=== PATIENT | male | born 1955 | race Caucasian/White ===

== ENCOUNTER → 2022-02-22 13:58 | Outpatient (BNVA) | payer MEDICARE, SELFPAY | PROVIDERS: PCP Family Medicine; Visit Provider Physician Assistant | DX: M51.37 Other intervertebral disc degeneration, lumbosacral region (principal); M47.816 Spondylosis without myelopathy or radiculopathy, lumbar region; M85.88 Other specified disorders of bone density and structure, other site; M46.1 Sacroiliitis, not elsewhere classified; M48.56XD Collapsed vertebra, not elsewhere classified, lumbar region, subsequent encounter for fracture with routine healing | CPT/HCPCS: 72110; 99203 ==

== ENCOUNTER 2022-04-27 08:00 | Outpatient (CLI) | payer MEDICARE, OTHER, SELFPAY ==
--- NOTE | 2022-04-27 08:45 | MR_ITS ---
WS: [id number] MRI LUMBAR SPINE NONCONTRAST TECHNIQUE: Sagittal T1, T2 and STIR imaging. Axial T1 and T2 imaging. CLINICAL INFORMATION: pain COMPARISON: None. FINDINGS: Mild lumbar curve. No acute compression. No high-grade central canal stenosis. L1-L2: Mild disc bulging with osteophytic ridging. Narrowing of the subarticular recess bilaterally. Mild facet arthropathy. Spinal canal and foramen are patent. L2-L3: Mild disc bulging with slight effacement of ventral thecal sac. Slight narrowing of the LEFT s ubarticular recess. Mild facet arthropathy. Small LEFT foraminal protrusion with mild LEFT foraminal narrowing. Slight impingement traversing LEFT L3 nerve root. Mild central canal stenosis. L3-L4: Mild disc bulging with mild to moderate central canal stenosis. Impingement traversing L4 nerv e roots bilaterally. Moderate facet arthropathy. Mild RIGHT and no significant LEFT foraminal narrowi ng. L4-L5: Mild disc osteophytic ridging. Mild to moderate central canal stenosis. Impingement traversing L5 nerve roots bilaterally. Mild to moderate facet arthropathy. Mild bilateral foraminal narrowing L5-S1: Disc osteophyte complex endplate ridging. Impingement traversing S1 nerve roots bilaterally. M ild central canal stenosis. Moderate facet arthropathy. Mild to moderate bilateral bony foraminal [place] rowing Prior interbody bony fusion C5-C7 on the pneudraulic systems mechanic imaging. Visualized pelvic bony structures: Normal. Paravertebral soft tissues: Normal. MR/MR lumbar spine wo con* [id number] IMPRESSION: 1. Mild lumbar curve. No acute compression. 2. Mild to moderate central canal stenosis L3-L4 and L4-L5 with impingement tr aversing L4 and L5 nerve roots respectively. 3. Disc osteophyte complex L5-S1 slightly impinges the traversing S1 nerve shannen ts bilaterally. Mild central canal stenosis. 4. Mild bilateral L4-L5 and mild to moderate bilateral L5-S1 bony foraminal na rrowing. 5. Moderate facet arthropathy L3-L5.
== END 2022-04-27 08:01 | disposition home or self-care (01) ==
PROVIDERS: PCP Family Medicine; Visit Provider Physician Assistant
DX: M79.605 Pain in left leg (principal); M48.061 Spinal stenosis, lumbar region without neurogenic claudication; M25.78 Osteophyte, vertebrae; M47.816 Spondylosis without myelopathy or radiculopathy, lumbar region
CPT/HCPCS: 72148

== ENCOUNTER 2022-06-04 18:56 | Emergency (ER) | payer MEDICARE, OTHER, SELFPAY ==
[2022-06-04 19:09] VITALS: BP 160/92; PULSE 73; RESP 20; TEMP 36.8; O2SAT 99; BMI 21.7
--- NOTE | 2022-06-04 19:18 | XRR_ITS ---
PROCEDURE INFORMATION: Exam: XR Chest Exam date and time: 06/04/2022 7:45 PM Age: 67 years old Clinical indication: Shortness of breath and other: Headache, abd pain; Additional info: SOB TECHNIQUE: Imaging protocol: Radiologic exam of the chest. Views: 1 view. COMPARISON: No relevant prior studies available. FINDINGS: Lungs: There is some calcified granulomas in the left lung. No acute infiltrate is identified. Lungs are hyperinflated with changes of COPD. Pleural spaces: Unremarkable. No pleural effusion. No pneumothorax. Heart/Mediastinum: Heart is within normal limits of size. Bones/joints: There are degenerative changes in the thoracic spine. XR/XR chest 1V portable [id number] IMPRESSION: Emphysema. No acute infiltrate.
--- NOTE | 2022-06-04 19:32 | W.ED.ABDPA2 ---
HPI - Abdominal Pain General: Chief Complaint: Abdominal Pain Stated Complaint: abd pain, headache, SOB Time Seen by Provider: 06/04/22 19:18 Source: patient Mode of arrival: ambulatory Limitations: no limitations History of Present Illness: 67-year-old male with a history of chronic pain he states has been having some chronic abdominal pain along with some headaches along with mild dyspnea over the last month. States his headaches is 6 out of 10 denies any fevers he denies any vomiting or diarrhea denies any worsening improving factors. He states he had difficulty sleeping as well. He denies any chest pain. Associated Symptoms: Denies chills, dysuria and fever(s) Review of Systems Const: Denies: fever(s), chills, body aches or change in appetite Eyes: Denies: blurry vision or eye discomfort ENMT: Denies: throat pain or dental pain Card: Denies: chest pain Resp: Reports: dyspnea GI: Reports: abdominal pain : Denies: dysuria Musc: Denies: neck pain or back pain Skin/Breast: Denies: rash Neuro: Reports: headache(s) Psych: Denies: depression Tamir/Lymph: Denies: easy bruising All/Imm: Denies: urticaria PFSH ED PFSH: Medical History (Updated 06/04/22 @ 20:33 by Maggie Hartman MD) No pertinent past medical history Family History Father CAD (coronary artery disease) Cancer Diabetes Denies family history of Clotting disorder Dementia Hyperlipidemia Psychiatric illness Chronic kidney disease (CKD) Suicide Anesthesia complication Bleeding disorder Family history of premature coronary artery disease Lung disease Hypertension Stroke Social History Smoking and tobacco status: current every day smoker Second hand smoke exposure: Yes Smoking risk assessment/counseling performed?: Yes Alcohol intake: former Year of sobriety/quit date alcohol: 8 Former alcohol use details: beer Desire information about alcohol rehabilitation?: No Counseling given: No Desire information about substance/drug rehabilitation?: No Counseling given: No Adopted: Yes Caregiver/support person: No Lives independently: Yes Household members: none Housing: Apartment Marital status: Number of children: 4 Number of grandchildren: 9 Highest education level completed: Some College, No Degree service: No Current occupational status: retired Current occupation: oxyacetylene welder Current occupational exposures/hazards: No Pets and animals: No Sexually active: No Current gender identity: Male Special biju needs: No Agree to transfusion: Yes Financial difficulty paying for basics: Not Applicable Physical Exam Const: COMMON NORMALS: no acute distress, patient oriented x3 and healthy appearing HENMT: COMMON NORMALS: normocephalic and atraumatic HEAD & SCALP: normocephalic and atraumatic Eye: COMMON NORMALS: Equal, round and reactive pupils present and EOMs intact bilaterally PUPIL: Yes Equal, round and reactive pupils present Neck/C-Spine: COMMON NORMALS: full ROM and supple Chest: COMMONS NORMALS: normal inspection of the chest and normal palpation of entire chest wall Resp: COMMON NORMALS: normal respiratory effort, No retractions, No use of accessory muscles and clear to auscultation bilaterally AUSCULTATION: clear to auscultation bilaterally Cardio: COMMON NORMALS: regular rate, regular rhythm and No murmurs present (Cardio) RATE: regular rate RHYTHM: regular rhythm GI: COMMON NORMALS: Normal to inspection, nondistended, normoactive bowel sounds present, Soft to palpation, non-tender and no masses PALPATION: Yes Soft to palpation Extremity: COMMON NORMALS: normal to inspection and full ROM Neuro: COMMON NORMALS: patient oriented x3, moves all extremities and no focal motor deficits Psych: COMMON NORMALS: mental status grossly normal, Normal thought process present and cooperative THOUGHT PROCESS: Normal thought process present Skin: COMMON NORMALS: no rashes or lesions noted and no wounds GENERAL SKIN EXAM: no rashes or lesions noted Course Vital Signs: Vital signs: Vital Signs Temperature 98.2 F 06/04/22 19:09 Pulse Rate 73 06/04/22 19:09 Respiratory Rate 15 06/04/22 20:41 Blood Pressure 160/92 06/04/22 19:09 Pulse Oximetry 99 06/04/22 19:09 Oxygen Delivery Me thod 06/04/22 19:09 MDM - Abdominal Pain Medical Decision Making Patient presents with abdominal pain along with a headache his symptoms are resolved here after meds his exam here is benign he does not have a surgical abdomen blood work is all normal he is stable for discharge we will prescribe Zofran for home he is to follow-up with PCP and return if worsening he understands agrees to plan. Lab Data 06/04/22 19:34 06/04/22 19:34 Labs/Radiology: Radiology Impressions Chest X-Ray 06/04/22 19:18 IMPRESSION: Emphysema. No acute infiltrate. Laboratory Results WBC 6.8 10^3/uL (4.0-10.0) 06/04/22 19:34 RBC 4.73 10^6/uL (4.1-5.3) 06/04/22 19:34 Hgb 14.2 g/dL (11.7-16.6) 06/04/22 19:34 Hct 44.0 % (42.0-52.0) 06/04/22 19:34 MCV 93.0 fl (80-94) 06/04/22 19: MCH 30.0 pg (28.0-34.0) 06/04/22 19:34 MCHC 32.3 g/dL (30.0-36.0) 06/04/22 19: RDW 13.3 % (12.1-15.1) 06/04/22 19:34 Plt Count 295 10^3/cmm (130-400) 06/04/22 19:34 MPV 9.4 fL (7.4-10.4) 06/04/22 19:34 Neut % (Auto) 71.7 % 06/04/22 19: Lymph % (Auto) 20.7 % 06/04/22 19:34 [place] % (Auto) 6.5 % 06/04/22 19:34 Eos % (Auto) 0.1 % 06/04/22: Baso % (Auto) 0.6 % 06/04/22 19:34 Neut # (Auto) 4.89 10^3/uL (1.8-7.7) 06/04/22 19:34 Lymph # (Auto) 1.4 10^3/uL (0.8-4.8) 06/04/22 19:34 [place]aves # (Auto) 0.4 10^3/uL (0.2-0.9) 06/04/22 19:34 Eos # (Auto) 0.0 10^3/uL (0.0-0.8) 06/04/22 19: Baso # (Auto) 0.0 10^3/uL (0.0-0.1) 06/04/22 19:34 Nucleated RBC % (auto) 0 % 06/04/22 19:34 Nucleated RBCs # 0.0 /100WBC 06/04/22 19:34 Sodium 134 mmol/L (136-145) L 06/04/22 19:34 Potassium 4.0 mmol/L (3.5-5.1) 06/04/22 19:34 Chloride 100 mmol/L (98-107) 06/04/22 19:34 Carbon Dioxide 25 mmol/L (22-29) 06/04/22 19:34 Anion Gap 13.0 (5-19) 06/04/22 19:34 BUN 6 mg/dL (8-23) L 06/04/22 19:34 Creatinine 0.6 mg/dL (0.7-1.2) L 06/04/22 19:34 GFR Calculation 135.2 mL/min (90-130) H 06/04/22 19:34 Glucose 107 mg/dL (65-115) 06/04/22 19:34 Calculated Osmolality 276 mOsm/kg (285-295) L 06/04/22 19:34 Calcium 8.9 mg/dL (8.5-10.5) 06/04/22 19:34 Total Bilirubin 0.5 mg/dL (0.15-1.2) 06/04/22 19:34 AST 9 U/L (0-40) 06/04/22 19:34 ALT < 5 U/L (0-41) 06/04/22 19:34 Alkaline Phosphatase 46 U/L (40-130) 06/04/22 19:34 Total Protein 6.5 g/dL (6.6-8.7) L 06/04/22 19:34 Albumin 4.3 g/dL (3.5-5.2) 06/04/22 19:34 Globulin 2.2 g/dL (1.3-4.6) 06/04/22 19:34 Lipase 10 U/L (13-60) L 06/04/22 19:34 Urine Color Colorless (Yellow) 06/04/22 19:45 Urine Appearance Clear (CLEAR) 06/04/22 19:45 Urine pH 7 (5-7) 06/04/22 19:45 Ur Specific [place] 1.010 (1.005-1.030) 06/04/22 19:45 Urine Protein Neg (Negative) 06/04/22 19:45 Urine Glucose (UA) Norm (Normal) 06/04/22 19:45 Urine Ketones Negative (Negative) 06/04/22 19:45 Urine Blood Neg (Negative) 06/04/22 19:45 Urine Nitrate Negative (Negative) 06/04/22 19:45 Urine Bilirubin Neg (Negative) 06/04/22 19:45 Urine Urobilinogen Norm mg/dL (Negative) 06/04/22 19:45 Ur Leukocyte Esterase Negative (Negative) 06/04/22 19:45 Discharge Plan Discharge Patient Disposition: Home Clinical Impression: Abdominal pain, Headache Condition: Stable Prescriptions: New ondansetron 4 mg tablet,disintegrating 4 mg PO Q6H PRN (Reason: nausea and vomiting) Qty: 14 0RF No Action amitriptyline 50 mg tablet 50 mg PO DAILY tizanidine 6 mg capsule 6 mg PO BID PRN trazodone 50 mg tablet 50 mg PO DAILY oxycodone [OxyContin] 20 mg tablet,oral only,ext.rel.12 hr 20 mg PO BID Discharge Orders: Discharge ED (Routine); Ordered 06/04/22 Ordered By: Maggie Hartman Referrals: Reji Sheppard MD [Primary Care Provider] - 1-3 days Discharge Diet: Advance as tolerated Discharge Activity: Resume usual activity Patient Instructions: Abdominal Pain (ED) Coding Level of Care Code ED Specialty Development Consultant for Melia Stratton
[2022-06-04] MEDS: ketorolac 30 mg/mL INJ 15 MG IVP (19:35)
[2022-06-04] MEDS: diphenhydrAMINE 50 mg/mL SDV 1mL IVP (19:36)
[2022-06-04] MEDS: metoclopramide 5 mg/mL SDV 2 mL 10 MG IVP (19:36)
[2022-06-04 19:46] LABS: Basophils % 0.6 %; Eosinophils % 0.1 %; Hemoglobin 14.2 g/dL (11.7-16.6); Lymphocytes # 1.4 10^3/uL (0.8-4.8); Lymphocytes % 20.7 %; Mean Corpuscular HGB Conc 32.3 g/dL (30.0-36.0); Mean Platelet Volume 9.4 fL (7.4-10.4); Monocytes # 0.4 10^3/uL (0.2-0.9); Monocytes % 6.5 %; Neutrophils # 4.89 10^3/uL (1.8-7.7); Neutrophils % 71.7 %; Nucleated Red Blood Cells % 0 %; Platelet Count 295 10^3/cmm (130-400); Red Blood Count 4.73 10^6/uL (4.1-5.3); Red Cell Distribution Width 13.3 % (12.1-15.1); White Blood Count 6.8 10^3/uL (4.0-10.0)
[2022-06-04 20:00] LABS: Alanine Aminotransferase < 5 U/L (0-41); Albumin Level 4.3 g/dL (3.5-5.2); Alkaline Phosphatase 46 U/L (40-130); Aspartate Amino Transferase 9 U/L (0-40); Blood Urea Nitrogen 6 mg/dL (8-23); Calcium 8.9 mg/dL (8.5-10.5); Carbon Dioxide 25 mmol/L (22-29); Chloride 100 mmol/L (98-107); Globulin 2.2 g/dL (1.3-4.6); Glomerular Filtration Rate 135.2 mL/min (90-130); Glucose 107 mg/dL (65-115); Lipase 10 U/L (13-60); Osmolality Calculated 276 mOsm/kg (285-295); Sodium 134 mmol/L (136-145); Total Bilirubin 0.5 mg/dL (0.15-1.2); Total Protein 6.5 g/dL (6.6-8.7)
[2022-06-04 20:20] LABS: Add Urine Microscopic? NO; Charge for UA Resulting for Rev
[2022-06-04 20:25] LABS: Bilirubin Urine Neg (Negative); Blood Urine Neg (Negative); Glucose Urine UA Norm (Normal); Ketones Urine Negative (Negative); Leukocyte Esterase Urine Negative (Negative); Nitrate Urine Negative (Negative); Protein Urine Neg (Negative); Urine Appearance Clear (CLEAR); Urine Color Colorless (Yellow); Urobilinogen Urine Norm (Negative); pH Urine 7 (5-7)
[2022-06-04 20:41] VITALS: RESP 15
[2022-06-04] MEDS: morphine 4 mg/mL SDV 1 mL IVP (20:41)
[2022-06-04] MEDS: ondansetron 2 mg/ML SDV 2 mL 4 MG IVP (20:41)
== END 2022-06-04 20:49 | disposition home or self-care (01) ==
PROVIDERS: Emergency Provider Emergency Medicine; PCP Family Medicine
DX: R10.9 Unspecified abdominal pain (principal); R51.9 Headache, unspecified; J43.9 Emphysema, unspecified; F17.210 Nicotine dependence, cigarettes, uncomplicated
CPT/HCPCS: 71045; 80053; 81003; 83690; 85025; 96374; 96375; 99285; J1200; J1885; J2270; J2405; J2765

== ENCOUNTER → 2022-06-07 10:50 | Outpatient (BNVA) | payer MEDICARE, OTHER, SELFPAY | PROVIDERS: PCP Family Medicine; Visit Provider Physician Assistant | DX: M51.37 Other intervertebral disc degeneration, lumbosacral region (principal); M48.062 Spinal stenosis, lumbar region with neurogenic claudication; M47.816 Spondylosis without myelopathy or radiculopathy, lumbar region | CPT/HCPCS: 99213 ==

== ENCOUNTER → 2022-07-05 10:50 | Outpatient (BNVA) | payer MEDICARE, OTHER, SELFPAY | PROVIDERS: PCP Family Medicine; Visit Provider Anesthesiology Pain Medicine | DX: M48.062 Spinal stenosis, lumbar region with neurogenic claudication (principal); M47.816 Spondylosis without myelopathy or radiculopathy, lumbar region; M51.37 Other intervertebral disc degeneration, lumbosacral region; M79.604 Pain in right leg; M79.605 Pain in left leg | CPT/HCPCS: 99204 ==

== ENCOUNTER → 2022-07-23 14:07 | Outpatient (BNVA) | payer MEDICARE, OTHER, SELFPAY | PROVIDERS: PCP Family Medicine; Visit Provider Anesthesiology Pain Medicine | DX: M47.816 Spondylosis without myelopathy or radiculopathy, lumbar region (principal); M48.062 Spinal stenosis, lumbar region with neurogenic claudication | CPT/HCPCS: 64493; 64494; 64495; J3490 ==

== ENCOUNTER → 2022-08-06 13:03 | Outpatient (BNVA) | payer MEDICARE, OTHER, SELFPAY | PROVIDERS: PCP Family Medicine; Visit Provider Anesthesiology Pain Medicine | DX: M47.816 Spondylosis without myelopathy or radiculopathy, lumbar region (principal); M48.062 Spinal stenosis, lumbar region with neurogenic claudication | CPT/HCPCS: 64493; 64494; 64495; J3490 ==

== ENCOUNTER → 2022-09-20 08:26 | Outpatient (BNVA) | payer MEDICARE, OTHER, SELFPAY | PROVIDERS: PCP Family Medicine; Visit Provider Physician Assistant | DX: M48.062 Spinal stenosis, lumbar region with neurogenic claudication (principal); M47.816 Spondylosis without myelopathy or radiculopathy, lumbar region; M51.37 Other intervertebral disc degeneration, lumbosacral region | CPT/HCPCS: 36415; 80053; 81003; 85025; 99213 ==

== ENCOUNTER 2022-10-17 15:25 | Inpatient (IN) | payer MEDICARE, OTHER, SELFPAY ==
[2022-10-16 08:55] VITALS: BMI 22.4
[2022-10-17] VITALS (11 sets, daily range): BP systolic 103–158; BP diastolic 63–78; PULSE 82–102; RESP 16–18; TEMP 36.4–37; O2SAT 94–100
--- NOTE | 2022-10-17 | XR_ITS ---
WS: [id number] Lumbar spine, C-arm fluoroscopy views, 10/17/2022 Clinical Data: L4 to pelvis instrumented fusion Comparison: Lumbar spine, 02/22/2022 Findings: Dr. Calero performed a posterior lumbosacral fusion. XR/XR lumbar spine 2-3V* [id number] Impression: Posterior lumbosacral fusion.
--- NOTE | 2022-10-17 11:03 | ECG_ITS ---
[facility] Test Date: 2022-10-17 Pat Name: Harlan Copeland Department: Room: Gender: Male Legal Director: : 1955 Requested By: Sarah Charles Order Number: [id number] Isabell MD: Lakisha Pedro M.D. Measurements Intervals [place] Rate: 65 P: 27 AL: 150 QRS: 56 QRSD: 86 T: 50 QT: 387 QTc: 405 Interpretive Statements SINUS RHYTHM No previous ECG available for comparison Electronically Signed On 10-17-2022 17:02:00 CDT by Lakisha Pedro M.D. [id number]
--- NOTE | 2022-10-17 11:18 | W.PM.OPSUD ---
Surgery/Procedure H&P Update DATE OF PROCEDURE: October 17, 2022 DATE H&P PERFORMED: 09/20/22 H&P UPDATE INFORMATION: I have reviewed H&P completed within last 30 days and I have examined patient prior to procedure PREOP DIAGNOSIS: DDD lumbar, lumbar stenosis with neurogenic claudication PLANNED PROCEDURE: Operation Date: 10/17/22 13:15 Proposed Procedures p L4 to the pelvis instrumented fusion with TLIF at L5-S1 decompression L4 to sacrum:28681,56331,56311,92564,67477,66187,69687,29776,M48.062,M47.816,M51.37(Not Applicable) - Carlos Calero, DO
[2022-10-17] MEDS: sodium chloride 0.9% 1,000 ML 30 ML IV (11:20)
--- NOTE | 2022-10-17 11:42 | ANES.PREANE2 ---
Pre-Anesthetic Assessment Height/Weight: Height 1.85 m Weight 77.111 kg Temp Pulse Resp BP Pulse Ox O2 Del Method 98.6 F 94 18 143/75 96 Room Air 10/17/22 10:55 10/17/22 10:55 10/17/22 10:55 10/17/22 10:55 10/17/22 10:55 10/17/22 10:55 Preop Diagnosis: DDD lumbar, lumbar stenosis with neurogenic claudication Operation Date: 10/17/22 13:15 Proposed Procedures p L4 to the pelvis instrumented fusion with TLIF at L5-S1 decompression L4 to sacrum:56589,83931,32612,76848,62356,41551,62531,48651,M48.062,M47.816,M51.37(Not Applicable) - Carlos Calero DO Familial anesthetic complications: None Was Beta Ciaran taken within 24 hours: N/A Was Clonidine taken within 24 hours: N/A Last intake: Intake Last Liquid Date 10/16/22 Last Liquid Time 22:30 Last Solid Date 10/16/22 Last Solid Time 22:30 Social Tobacco and No alcohol Exam alert, oriented x 3, clear to auscultation bilaterally and regular rate & rhythm Airway Mallampati: Class II Dentition: full Anesthetic Plan ASA status: 2 Anesthesia: General Risk of > 500 ml blood loss (7ml/kg in children): No Medications/Allergies Home Medications Medication Instructions Recorded Confirmed Last Taken Type amitriptyline 50 mg tablet 50 mg PO DAILY 02/22/22 10/17/22 10/16/22 23:30 History tizanidine 6 mg capsule 6 mg PO BID PRN Muscle Pain 02/22/22 10/17/22 10/16/22 23:30 History trazodone 50 mg tablet 50 mg PO DAILY 02/22/22 10/17/22 10/16/22 23:30 History hydrocodone 10 mg-acetaminophen 1 tab PO Q6H PRN Moderate Pain 07/05/22 10/17/22 10/17/22 08:00 History 325 mg tablet (Scale Score 5-6) Intraoperative Neurophysiological #1 ea 10/08/22 10/08/22 Unknown Rx Testing Allergies Allergy/AdvReac Type Severity Reaction Status Date / Time No Known Allergies Allergy Verified 10/17/22 10:47 Current Medications Generic Name Dose Route Start Last Admin Trade Name lE PRN Reason Stop Dose Admin Sodium Chloride 1,000 mls @ 30 mls/hr 10/17/22 10:45 10/17/22 11:20 Sodium Chloride 0.9% IV 10/18/22 10:44 30 mls/hr .Q24H ASA Administration PFSH Anesthesia Medical History DDD (degenerative disc disease), lumbosacral Facet arthritis, degenerative, lumbar spine Lumbar spondylosis Spinal stenosis, lumbar region, with neurogenic claudication Surgical History Acute meniscal tear of right knee Carpal boss of left wrist Carpal boss of right wrist Cubital bursitis of both elbows Family History Father CAD (coronary artery disease) Cancer Diabetes Denies family history of Clotting disorder Dementia Hyperlipidemia Psychiatric illness Chronic kidney disease (CKD) Suicide Anesthesia complication Bleeding disorder Family history of premature coronary artery disease Lung disease Hypertension Stroke Social History Smoking and tobacco status: current every day smoker Second hand smoke exposure: Yes Smoking risk assessment/counseling performed?: Yes Alcohol intake: former Year of sobriety/quit date alcohol: 8 Former alcohol use details: beer Desire information about alcohol rehabilitation?: No Counseling given: No Substance/Drug Use: never Desire information about substance/drug rehabilitation?: No Counseling given: No Adopted: Yes Caregiver/support person: No Lives independently: Yes Household members: none Housing: Apartment Marital status: Number of children: 4 Number of grandchildren: 9 Highest education level completed: Some College, No Degree service: No Current occupational status: retired Current occupation: welder 2nd shift Current occupational exposures/hazards: No Pets and animals: No Sexually active: No Do you think of yourself as: Decline to Answer Current gender identity: Male Special biju needs: No Agree to transfusion: Yes Financial difficulty paying for basics: Not Applicable Data Anesthesia Cardiac Studies: No Data to Display
[2022-10-17] MEDS: ceFAZolin 2,000 MG in sodium chloride 0.9% (plus) 50 ML 100 MG IV ×2 (12:12→19:37)
[2022-10-17] MEDS: vancomycin 1,000 MG SDV 1000 MG XX (13:12)
[2022-10-17] MEDS: lidocaine-epi 1% 20 mL INJ INJECTION (13:13)
[2022-10-17] MEDS: heparin, porcine 1,000 unit/mL INJ 10 mL 10000 UNIT IRRIGATION (13:13)
--- NOTE | 2022-10-17 15:08 | PM.OP ---
Operative Report Date of procedure: October 17, 2022 Pre-op diagnosis: Preop Diagnosis DDD lumbar, lumbar stenosis with neurogenic claudication Post-op diagnosis: same Procedure done: 1.? L5/S1 Interbody fusion with posterolateral fusion 2. L4/5 interbody fusion with posterolateral fusion 3.? Instrumentation L4-S1 4.? Lumbo pelvic fixation 5.? Posterolateral fusion from L4-Pelvis 6. Cage at L5/S1 7. Cage at L4/5 8. Open SI joint fusion on the right 9. open SI joint fusion of the Left 10. L4/5 Laminectomy with partial facetectomy 11. L5/S1 laminctommy with partial facetectomy 12. use of autograft from same incision 13. allograft 14. Bone marrow aspirate from right iliac crest 15. use of computer navigation stereotactic from spine Surgeon: Carlos Calero Four H Agent: Melvin Chambers Four H Agent: The surgical territory manager, Melvin Chambers, PAC was needed for his expertise under the microscope. He was important and necessary throughout the procedure to complete in a safe and timely manner. He assisted with patient positioning prepping and draping tissue retraction suctioning of the operative field protection of the dural sac and tissue closure Estimated blood loss (mL): 500 Procedure: 1.? L5/S1 Interbody fusion with posterolateral fusion 2. L4/5 interbody fusion with posterolateral fusion 3.? Instrumentation L4-S1 4.? Lumbo pelvic fixation 5.? Posterolateral fusion from L4-Pelvis 6. Cage at L5/S1 7. Cage at L4/5 8. Open SI joint fusion on the right 9. open SI joint fusion of the Left 10. L4/5 Laminectomy with partial facetectomy 11. L5/S1 laminctommy with partial facetectomy 12. use of autograft from same incision 13. allograft 14. Bone marrow aspirate from right iliac crest 15. use of computer navigation stereotactic from spine Patient is brought to the operative suite.? After undergoing anesthesia, the patient had neuro monitoring attached.? Patient was then placed in the prone position on the Misha table.? All areas of impingement were well-padded.? Patient was then prepped and draped in the normal sterile fashion.? Skin incision was then made over the L3-sacrum.? Subperiosteal dissection was made out to the transverse processes bilaterally of L4 and L5 and out to the sacral ala's and dissecting out the sacroiliac joints.? The [employer] bone marrow aspirate kit was used to aspirate bone marrow aspirate from the right iliac crest.? This was done by using the sharp probe to open up the bone.? Aspiration was performed and then the blunt probe was then used to dissect down to through the bone tunnel.? An aspirating well drawn back a millimeter approximately 20 cc of bone marrow aspirate was used.? And mixed with the allograft and autograft bone that will be used. Extension was brought to placing the pins for the computer navigation fiducial.? This was done by placing 2 iliac crest pins in the right side.? These pins were later removed within the case.? Skin incision made in 2 pins were placed fiducial was attached to these 2 pins.? And then the C-arm was brought in and spun around the patient and the information from the C-arm was then loaded into the computer through the fiducials.? And later used to place the pedicle screws. The technique for placing the pedicle screws was to use a drill followed by the gearshift probe linked to computer navigation.? Followed by the ball probe to feel the superior inferior medial lateral contreras of the pedicles.? Then placement of the screws linked to computer navigation.? Was done at each pedicle.? Screws were placed at L4? bilaterally, L5 bilaterally and S1 bilaterally. Extension was brought to placing the iliac screws.? This was done by using the gearshift linked to computer navigation gearshift was placed just distal to the S1 foramen and lateral.? Was driven through the sacral ala across the iliosacral joint and into the iliac crest.? This was done bilaterally.? And then a 90 mm 9.5 mm iliac screw was placed. Next attention was brought to doing the open SI joint fusions on both the right and the left side.? This was done by identifying the SI joint scraping out the SI joint and packing it with bone graft as well as passing a wire across to the iliac joint that has bone graft capabilities the wire was then drilled and bone graft was packed into this hole and then the screw which is in sacroiliac screw was brought across the joint fusing the joint.? This was done on both the right and the left sides. Next attention was brought to performing the laminectomy of L4.? This was done using the high-speed bur Kerrisons and curettes.? Once the lamina was removed and then attention was brought to performing a partial facetectomy on the contralateral side.? This was done again using the high-speed bur curettes and Kerrisons.? The ligamentum flavum was taken down bilaterally from L4 to L5.? Attention was then brought to the facet on the ipsilateral side.? The facet was taken down.? The L5 nerve was decompressed as it passed around the L5 pedicle.? The laminectomy was done for purposes of decompressing the nerve as well as placement of the cage.? The L4 nerve was identified as it traversed through the L4/5 foramen.? The thecal sac was identified and retracted. The L4/5 disc base was identified.? Using a knife the disc base was opened.? And then sequential delilah were placed.? The first shaver was a 6 and the last shaver was a 9.? Using a pituitary and down going curette the endplates were scraped and disc material was removed from the space.? Once adequate decompression of the disc base was felt to be had.? Osteoamp sponge was packed into the anterior aspect of the disc base.? Then a size 9 cage from [employer] was placed after packing osteoamp into the cage.? While placing the cage the thecal sac and S1 nerve was protected.? C arm was used to ensure that the cages placed in the appropriate position Next attention was brought to performing the laminectomy of L5.? This was done using the high-speed bur Kerrisons and curettes.? Once the lamina was removed and then attention was brought to performing a partial facetectomy on the contralateral side.? This was done again using the high-speed bur curettes and Kerrisons.? The ligamentum flavum was taken down bilaterally from L5 to S1.? Attention was then brought to the facet on the ipsilateral side.? The facet was taken down.? The S1 nerve was decompressed as it passed around the s1 pedicle.? The laminectomy was done for purposes of decompressing the nerve as well as placement of the cage.? The L5 nerve was identified as it traversed through the L5/S1 foramen.? The thecal sac was identified and retracted.? The L5/S1 disc base was identified.? Using a knife the disc base was opened.? And then sequential delilah were placed.? The first shaver was a 6 and the last shaver was a 7.? Using a pituitary and down going curette the endplates were scraped and disc material was removed from the space.? Once adequate decompression of the disc base was felt to be had.? Osteoamp sponge was packed into the anterior aspect of the disc base.? Then a size 8 cage from [employer] was placed after packing osteoamp into the cage.? While placing the cage the thecal sac and S1 nerve was protected.? C arm was used to ensure that the cages placed in the appropriate position. Attention was then brought to attaching the rods to the screws placed in the L2 bilaterally, L3 bilaterally, L4 bilaterally L5 bilaterally S1 bilaterally.? The anusha was also connected to the screws providing the lumbopelvic aspect of the lumbopelvic fixation.? Caps were torqued into position. Locking the construct in place. Wound was copiously irrigated and then attention was brought to decorticating the facets and transverse processes laterally.? Bone that was taken down from the lamina was used along with osteoamp fibers and sponges were packed into the lateral gutters along the facet joints.? This was done bilaterally. Wound was then closed in a layered fashion starting with the thoracolumbar fascia.? 0-vicryl was used the sub cutaneous tissue was closed with 2-0 vicryl and skin with 4-0 monocryl.? Glue was then used to seal the skin and a steril dressing was applied.? Patient was then placed in the supine position. The endotracheal tube was removed and patient was transferred to the PACU in stable condition.
[2022-10-17] MEDS: fentaNYL 50 mcg/mL INJ 2mL IVP (15:20)
[2022-10-17] MEDS: HYDROmorphone 1 mg/mL INJ 1 mL 0.5 MG IVP (15:35)
[2022-10-17] MEDS: HYDROcodone-acetaminophen 10-325 mg Tablet PO ×2 (16:00→21:05)
--- NOTE | 2022-10-17 16:00 | ANE.PACU2 ---
Inpatient post-anesthesia follow up: Airway intact: Yes Vital signs: Temperature 98.9 F Pulse Rate 67 Respiratory Rate 16 Blood Pressure 134/80 Pulse Oximetry 99 Oxygen Delivery Me thod Room Air Oxygen Flow Rate Fraction of Inspir ed Oxygen Hydration adequate: Yes Nausea and vomiting: Yes Pain level: 1 Mental status: Baseline
[2022-10-17] MEDS: lactated ringers 1,000 ML 90 ML IV (16:11)
[2022-10-17 16:47] LABS: Glucose Point of Care 157 mg/dL (70-110)
[2022-10-17] MEDS: oxyCODONE 20 mg ER (12 HR) Tablet PO (17:27)
[2022-10-17] MEDS: docusate sodium 100 mg Capsule PO (17:28)
[2022-10-17] MEDS: morphine 4 mg/mL SDV 1 mL 2 MG IVP ×2 (19:39→22:10)
[2022-10-17] MEDS: ketorolac 30 mg/mL INJ IVP (19:39)
[2022-10-18] VITALS (16 sets, daily range): BP systolic 121–147; BP diastolic 68–80; PULSE 63–92; RESP 16–22; TEMP 36.3–37.2; O2SAT 95–99
[2022-10-18] MEDS: morphine 4 mg/mL SDV 1 mL 2 MG IVP ×6 (00:38→22:12)
[2022-10-18] MEDS: trazodone 50 mg Tablet PO ×2 (00:47→20:27)
[2022-10-18] MEDS: HYDROcodone-acetaminophen 10-325 mg Tablet PO ×2 (02:10→06:26)
[2022-10-18] MEDS: lactated ringers 1,000 ML 90 ML IV ×2 (02:11→13:43)
[2022-10-18] MEDS: ceFAZolin 2,000 MG in sodium chloride 0.9% (plus) 50 ML 100 MG IV ×2 (03:44→12:10)
[2022-10-18] MEDS: docusate sodium 100 mg Capsule PO ×2 (09:35→17:56)
[2022-10-18] MEDS: amitriptyline 25 mg Tablet 50 MG PO (09:35)
[2022-10-18] MEDS: oxyCODONE 20 mg ER (12 HR) Tablet PO (09:35)
--- NOTE | 2022-10-18 09:40 | PM.PN ---
Subjective Subjective: Patient is lying in bed patient had significant pain last night. Hemovac drain was emptied couple times. Vitals/I&O/Wt Last Vital Signs Temp 98.9 F 10/18/22 04:27 Pulse 67 10/18/22 04:27 Resp 22 H 10/18/22 09:35 BP 134/80 10/18/22 04:27 Pulse Ox 99 10/18/22 04:27 O2 Del Method Room Air 10/17/22 16:30 10/17/22 10/18/22 10/18/22 22:59 06:59 14:59 Intake Total 850 / 1900 1575 / 3475 Output Total 1300 / 1300 1100 / 2400 Balance -450 / 600 475 / 1075 Physical Exam Narrative: Patient is moving his toes move his legs. Resting in bed Urinary Catheter Management: Wilson: Cath Placed During This Visit: yes Reason for Continuing Indwelling Catheter: Perioperative Use in Selected Surgeries Urinary Catheter Date of Insertion: 10/17/22 Urinary Catheter Time of Insertion: 12:47 A&P Assessment and plan (1) Status post lumbar spinal fusion: Patient is postop day 1 from L4 to pelvis fusion. At this point patient does not appear ready to go home. We will try to get him up with therapy make sure that he is taking the pain meds of OxyContin every 12 hours as well as his hydrocodone tens and morphine. We will check an H&H. Attestations Medical Necessity Statement*: Pain control Coding Level of Care Code Acute Code for Chg Fwd Diagnoses Status post lumbar spinal fusion Z98.1
--- NOTE | 2022-10-18 09:45 | PC.CHAP ---
Pastoral Care Encounter/Spiritual Assessment Type of Contact [] Declined trap setter visit [] Patient/Family/Request visit [] Outpatient visit [] Follow-up visit [] Physician referral [] Code/Alert [x] Routine visit [] Staff referral [] Actively dying [] Patient sleeping [] Family support [] [] Out of room [] Palliative care [] [x] Receiving care in room [] Pre-surgical visit [] Trauma [] Long length of stay [] ICU visit [] Other: Relational/Emotional Strength [x] Patient feels connected with others/family/visitors/staff [] Distress [] Loneliness/isolation [] Abandonment Spirituality of Patient [x] Person of Daja [] Attends Christian of their Daja [x] Believes in Prayer [] Reads Bible or Episcopalian materials [] There are Spiritual issues to be addressed Unix Architect Interventions [x] Prayer [x] Active listening [x] Non-anxious presence [x] Spiritual/emotional support [] Crisis/trauma care [x] Spiritual counseling [] Bereavement support [] Provided bereavement packet [] Provided Bible/devotional materials [] Provided toy/stuffed animal, coloring book to patient or family member [] Provided Communion [] Anointing/[place] [] Salvation [x] Completed spiritual assessment [] Other: Impact on Illness or Injury [] Angry [] Fearful [] Anxious [] Often cries [] Exhaustion [] Unable to work [] Unable to attend orthodoxy [] Unable to walk/stand [] Unable to read [] Unable to drive [] Unable to eat/drink [] Unable to sleep [] Unable to be with family [] Patient intubated [] Other: Summary waiting on doctor report feels has a good attitude +1 well go home Time spent with patient 10 mins
[2022-10-18 10:45] LABS: Hematocrit 32.7 % (42.0-52.0); Hemoglobin 10.7 g/dL (11.7-16.6)
[2022-10-18] MEDS: oxyCODONE-APAP 10-325 mg Tablet PO ×3 (12:17→20:26)
[2022-10-18] MEDS: ketorolac 30 mg/mL INJ IVP (13:46)
[2022-10-18] MEDS: oxyCODONE 10 mg ER (12 HR) Tablet 30 MG PO (17:57)
[2022-10-18] MEDS: tizanidine 4 mg Tablet 6 MG PO (23:05)
[2022-10-19] VITALS (9 sets, daily range): BP systolic 108–151; BP diastolic 64–74; PULSE 80–93; RESP 16–20; TEMP 37; O2SAT 99
[2022-10-19] MEDS: oxyCODONE-APAP 10-325 mg Tablet PO ×3 (01:05→09:32)
[2022-10-19] MEDS: lactated ringers 1,000 ML 90 ML IV (01:31)
[2022-10-19] MEDS: morphine 4 mg/mL SDV 1 mL 2 MG IVP (04:12)
--- NOTE | 2022-10-19 07:14 | PM.DCS ---
Discharge Providers Date of Admission: 10/17/22 15:25 Date of Discharge: October 19, 2022 Attending Provider at Admission: Carlos Calero DO Attending Provider at Discharge: Carlos Calero DO Primary Care Provider: Reji Sheppard MD Diagnoses at Discharge Discharge Diagnosis (1) Status post lumbar spinal fusion: Status: Acute Reason for Visit Reason for Visit: M48.062, M47.816, M51.37 Physical Exam Narrative: Seen at bedside doing well this morning. Urinary Catheter Management: Wilson: Cath Placed During This Visit: yes Reason for Continuing Indwelling Catheter: Perioperative Use in Selected Surgeries Urinary Catheter Date of Insertion: 10/17/22 Urinary Catheter Time of Insertion: 12:47 Discharge Data Studies Completed and Pending Completed Studies During Hospitalization Category Date Time Status XR lumbar spine 2-3V* [id number] Routine Exams 10/17/22 Completed Radiology Impressions Lumbar Spine X-Ray 10/17/22 00:00 Impression: Posterior lumbosacral fusion. Laboratory Results Hgb 10.7 g/dL (11.7-16.6) L 10/18/22 10:28 Hct 32.7 % (42.0-52.0) L 10/18/22 10:28 POC Glucose 157 mg/dL (70-110) H 10/17/22 16:33 Vitals Last Vital Signs Temp 98.6 F 10/19/22 04:00 Pulse 89 10/19/22 04:00 Resp 16 10/19/22 05:32 BP 127/71 10/19/22 04:00 Pulse Ox 99 10/19/22 04:00 O2 Del Method Room Air 10/18/22 16:06 Discharge Plan Discharge Patient Disposition: Home Condition: Stable Prescriptions: New (DME) Intraoperative Neurophysiological Testing See Rx Instructions .Route .MEDSUPPLY Qty: 1 0RF Rx Instructions: As directed OxyContin 30 mg tablet,oral only,ext.rel.12 hr 30 mg PO Q12H 7 Days Qty: 14 0RF oxycodone 10 mg tablet 10 - 20 mg PO Q4H PRN (Reason: pain) 7 Days Qty: 40 0RF Continued amitriptyline 50 mg tablet 50 mg PO DAILY tizanidine 6 mg capsule 6 mg PO BID PRN (Reason: Muscle Pain) trazodone 50 mg tablet 50 mg PO DAILY Discontinued hydrocodone-acetaminophen 10-325 mg tablet 1 tab PO Q6H PRN (Reason: Moderate Pain (Scale Score 5-6)) Discharge Orders: Discharge Order (Routine); Ordered 10/19/22 Ordered By: Carlos Calero Other Ambulatory Orders: DME: Walker (Order) Location: None Selected Ordered By: Carlos Calero Referrals: Reji Sheppard MD [Primary Care Provider] - Discharge Diet: Advance as tolerated Discharge Activity: Limit activity as instructed Patient Instructions: Opioid Safety Activity Restrictions/Additional Instructions: Thank you for [facility] for your care! The following is a list of instructions, from your provider, to follow upon your discharge to ensure you have the optimal recovery from your recent injury orsurgery. Follow-up care is a cordero part of your treatment and safety. Be sure to make and go to all appointments, and call your doctor if you are having problems. If you do not already have a follow-up appointment made, call Dr. Calero office in the next 1-3 days to make follow up appointment for 2 weeks at [phone]. It is also a good idea to know your test results and keep a list of the medicines you take. Medications will be prescribed for you at your provider's discretion. These medications are to be used as instructed; if they are taken more often that prescribed they will not be refilled early and in most cases will not be refilled at all. > When a refill is needed,you should contact kameron alamo 2-3 business days before your prescription runs out. Medications will NOT be refilled by senior production planner providers after hours! > Many pain medications contain Tylenol (Acetaminophen). Do not consume more than 4,000 mg of Tylenol per day in total with any combination ofmedications. > Pain medications can cause constipation. Please use an over the counter stool softener as directed, while taking pain medications. Consulty our local pharmacist with questions or recommendations on stool softeners. If constipation persists, contact our office or your primary care provider. > While under our care,you are not to receive pain medications or other controlled substances from any other provider unless our office is notified and approves. Any attempts to do so will result in refusal to prescribe any further pain medications and possible dismissal from our practice. ? Your wound and/or dressing should remain clean and dry for 2 days after surgery. On postoperative day 2 (48 hours after your surgery) the dressing (if present) should be removed and it is okay to shower and get the incision wet. Pad dry afterwards. No further dressing should be required from that point on. Do not put any creams or ointments on theincision > It is normal for there to be a small amount of discharge (bloody or blood tinged) present from a surgical wound for the first 1-3days. > The wound should be examined twice a day for signs of infection. Mild redness or bruising is to be expected but indications that an infection maybe starting would include; An increase in redness, swelling, or discharge, a foul odor present around the incision, and/or a fever greater than 101 ?F ? Showering is permitted, however we ask that you do not take a bath, sit in a whirlpool / Jacuzzi, or go swimming for 1 month. For only the first 2 days after surgery, lt wilt be necessary for you to cover your wound/dressing with plastic and tape to keep it dry. ? Walking is essential for the healing process after surgery. We would like you to slowly advance your walking. This should be done on relatively flat clear ground (inside or out) or can be done on a treadmill. Remember this goal does not have to happen all at once, slowly increase your distance and duration. This can be broken into more more than one walk per day as tolerated. Patients who walk as directed after surgery rarely require Physical Therapy. In the unlikely event this issue arises your provider will direct hospital staff to make the appropriate arrangements. ? No lifting over 5 pounds {a gallon of milk) or bending/twisting until further notice. Each of these activities places an unnecessary amount of stress onto the body and can impede the delicate healing process. > Instead of bending at the waist, keep your back straight and bend at the knees. > Instead of twisting your torso, keep your back straight and turn your entire body with your feet. ? You may sleep in any position which makes you comfortable. Many patients find comfort sleeping in a reclining chair. It is not abnormal to have difficulty sleeping for the first several weeks following your surgery. We recommend trying Benadry! or Tylenol PM as directed to help with your sleeping difficulties. Both medications are over the counter and available withoutprescription. ? NO SMOKING!!! Smoking dramatically increases the probability of developing postoperative wound infections. ? Common complaints after lumbar and/or thoracic spine surgery include, but are not limited to: numbness and/or tingling in the legs, pain around the incision and surrounding tissues, muscle spasms, or stiffness of the middle to low back. Contact our office if these symptoms persist or if an acute change occurs. ? No driving for the first 3-5days, and not while taking narcotics until seen at your follow-up appointment and cleared. There are no restrictions for riding on short trips, however if you take a longer trip, arrangements should be made to make regular stops to get out of the vehicle and stretch . ? Swelling is an unfortunate event that will take place with any surgery and is the primary source of your postoperative discomfort. While walking and regular approved activities helps control inflammation, there are additional steps you can take to minimizeswelling. > Place ice over the surgical site and surrounding tissue for twenty minutes, followed by applying a low/medium heat (heating pad) for an additional twenty minutes every 1-2 hours as needed for painrelief. > You may use of over the counter anti-inflammatory medications (Ibuprofen, Motrin, Aleve, Advil, etc) as directed on the package label. These types of medicines wm significantly reduce the amount of discomfort you experience after surgery from swelling. It should be noted that if you have and allergy to any of these medications, or a history of ulcers or kidney disease you should consult you primary care provider prior to starting these medications. Discharge Attestations Time Spent in Discharge Care*: less than 30 min Quality Metrics Clinical Quality Measures [ No reported AMI, CVA or VTE this stay] Coding Level of Care Code Acute Code for Chg Fwd Diagnoses Status post lumbar spinal fusion Z98.1
--- NOTE | 2022-10-19 07:31 | PC.NURSE ---
Hemovac removed per Dr. Norwood order. Intact.
[2022-10-19] MEDS: amitriptyline 25 mg Tablet 50 MG PO (08:37)
[2022-10-19] MEDS: oxyCODONE 10 mg ER (12 HR) Tablet 30 MG PO (08:37)
[2022-10-19] MEDS: docusate sodium 100 mg Capsule PO (08:37)
[2022-10-19] MEDS: ketorolac 30 mg/mL INJ IVP (08:43)
--- NOTE | 2022-10-19 11:07 | PC.SOCIAL ---
CM called and spoke to patient and got choice for HOME for his walker, walker order faxed to HOME.
== END 2022-10-19 12:30 | disposition home or self-care (01) | DRG 455 ==
LOC: MEDSURG 18:45
PROVIDERS: Admitting Provider Orthopaedic Surgery; PCP Family Medicine; Visit Provider Orthopaedic Surgery
PROC: 0SG00AJ Fusion of Lumbar Vertebral Joint with Interbody Fusion Device, Posterior Approach, Anterior Column, Open Approach (ICD-10-PCS; CPT 22612; principal; 2022-10-17 12:55)
DX: M48.062 Spinal stenosis, lumbar region with neurogenic claudication (principal); M47.816 Spondylosis without myelopathy or radiculopathy, lumbar region; M51.37 Other intervertebral disc degeneration, lumbosacral region; F17.200 Nicotine dependence, unspecified, uncomplicated; Z79.891 Long term (current) use of opiate analgesic
CPT/HCPCS: 36415; 36416; 51702; 72100; 76000; 82962; 85014; 85018; 93005; 97116; 97161; 97530; C1713; C9359; J0330; J0690; J1100; J1170; J1644; J1885; J2270; J2405; J2704; J2710; J3010; J3370; J3490; J7030; J7120

== ENCOUNTER → 2022-11-06 10:51 | Outpatient (BNVA) | payer MEDICARE, OTHER, SELFPAY | PROVIDERS: PCP Family Medicine; Visit Provider Physician Assistant | DX: Z47.89 Encounter for other orthopedic aftercare (principal); Z98.1 Arthrodesis status | CPT/HCPCS: 72100; 99024 ==

== ENCOUNTER 2022-11-26 11:19 | Observation (INO) | payer MEDICARE, OTHER, SELFPAY ==
[2022-11-26] VITALS (8 sets, daily range): BP systolic 110–148; BP diastolic 64–81; PULSE 59–102; RESP 18–31; TEMP 36.8; O2SAT 95–98
--- NOTE | 2022-11-26 11:38 | CTR_ITS ---
PROCEDURE INFORMATION: Exam: CT Head Without Contrast Exam date and time: 11/26/2022 12:05 PM Age: 67 years old Clinical indication: Altered mental status/memory loss; Additional info: AMS TECHNIQUE: Imaging protocol: Computed tomography of the head without contrast. Radiation optimization: All CT scans at this facility use at least one of these dose optimization techniques: automated exposure control; mA and/or kV adjustment per patient size (includes targeted exams where dose is matched to clinical indication); or iterative reconstruction. REPORTING DATA: Count of CT and Cardiac NM exams in prior 12 months: This patient has received 0 known CTs and 0 known cardiac nuclear medicine studies in the 12 months prior to the current study. COMPARISON: No relevant prior studies available. RADIATION DOSE METRICS: Total DLP (mGy-cm): 1314.82 FINDINGS: Brain: Normal. No hemorrhage. No space-occupying masses or areas of mass effect. No edema or midline shift. Cortical sulci are unremarkable for age. Cerebral ventricles: No ventriculomegaly. Paranasal sinuses: Visualized sinuses are unremarkable. No fluid levels. Mastoid air cells: Visualized mastoid air cells are well aerated. Bones/joints: Unremarkable. Soft tissues: Unremarkable. CT/CT head wo con* [id number] IMPRESSION: Negative CT examination of the head. No acute intracranial abnormalities.
--- NOTE | 2022-11-26 11:38 | XRR_ITS ---
PROCEDURE INFORMATION: Exam: XR Chest Exam date and time: 11/26/2022 11:49 AM Age: 67 years old Clinical indication: Other: AMS TECHNIQUE: Imaging protocol: Radiologic exam of the chest. Views: 1 view. COMPARISON: CR (CHEST, ) 06/04/2022 7:45 PM FINDINGS: Lungs: Unremarkable. No consolidation. Pleural spaces: Unremarkable. No pleural effusion. No pneumothorax. Heart/Mediastinum: Unremarkable. No cardiomegaly. Bones/joints: Unremarkable for age. XR/XR chest 1V portable [id number] IMPRESSION: Negative chest exam.
--- NOTE | 2022-11-26 11:43 | XRR_ITS ---
PROCEDURE INFORMATION: Exam: XR Pelvis Exam date and time: 11/26/2022 11:52 AM Age: 67 years old Clinical indication: Pelvic pain; Additional info: Left pelvic pain TECHNIQUE: Imaging protocol: Radiologic exam of the pelvis. Views: 1 or 2 view. COMPARISON: CR XR lumbar spine 2-3V* [id number] 11/06/2022 11:06 AM FINDINGS: Bones/joints: Postsurgical changes lower lumbar spine L4 through S1 with transpedicular screws and interbody spacers L4-L5 and L5-S1. There are additional syndesmotic screws placed across the sacroiliac joints unchanged. Hardware is intact. Mild degenerative changes both hip joints, stable. No fracture, malalignment or significant interval changes. Soft tissues: Unremarkable. XR/XR pelvis 1-2V* [id number] IMPRESSION: Stable exam. No acute abnormalities.
--- NOTE | 2022-11-26 11:43 | ECG_ITS ---
[facility] Test Date: 2022-11-26 Pat Name: Harlan Copeland Department: Room: Gender: Male [employer]: : 1955 Requested By: Hao Dotson Order Number: [id number] Isabell MD: Marylou Fletcher M.D. Measurements Intervals [place] Rate: 67 P: 21 AL: 152 QRS: 65 QRSD: 80 T: 59 QT: 377 QTc: 399 Interpretive Statements SINUS RHYTHM Compared to ECG 10/17/2022 11:12:52 No significant changes Electronically Signed On 11-26-2022 17:14:22 CDT by Marylou Fletcher M.D. [email or web address]
--- NOTE | 2022-11-26 11:45 | W.ED.AMS ---
HPI - Altered Mental Status General: Chief Complaint: Altered Mental Status Stated Complaint: ams Time Seen by Provider: 11/26/22 11:20 Source: patient and EMS Mode of arrival: EMS History of Present Illness: This patient was transported via EMS to the emergency department. The story is obtained from EMS as well as from the patient. Patient's insight into his current situation is limited. Story from EMS is that they were called to the scene where this individual was located. He apparently was in a another person's house who was not not related or known to this patient. Please was also involved in that police was called by the home hourly shift manager regarding this gentleman being in their house uninvited. Upon arrival EMS noted that patient seemed to be somewhat confused about his situation and confabulated in various storytelling. They noted he has blood sugar was over 100 his pulse oximetry was greater than 90% and he had otherwise normal vital signs. He was transported here for further evaluation. Allegedly there are charges pending from the police department in his jurisdiction from which she came. On questioning the patient the patient states that he has pain in his left hip. He also states that he thinks he got some of this pain from a trip and fall last evening. When asked if he hit his head he pauses and states he thinks he might have but cannot quite remember for sure. He denies any other pain or symptoms at this time. He states that he takes several medications to include trazodone and amitriptyline. He states the last time he took his usual medications was last night. He denies alcohol use. He states he occasionally smokes hemp to help with sleep. He denies any recent illness. After review of his chart he does acknowledge that he had a spinal fusion surgery last month by Dr. Calero at this facility. Associated symptoms: Reports no associated symptoms Review of Systems Const: Denies: fever(s) or chills Eyes: Denies: change in vision ENMT: Denies: odynophagia or nasal congestion Card: Denies: chest pain, palpitations, irregular heart rhythm, syncope or pre-syncope Resp: Denies: dyspnea, productive cough or non-productive cough GI: Denies: abdominal pain, nausea, vomiting or diarrhea : Denies: flank pain, difficulty urinating, dysuria or urinary frequency Musc: Reports: extremity pain Skin/Breast: Denies: rash Neuro: Denies: headache(s), numbness in extremities or weakness in extremities PFSH ED PFSH: Medical History DDD (degenerative disc disease), lumbosacral Facet arthritis, degenerative, lumbar spine Lumbar spondylosis Spinal stenosis, lumbar region, with neurogenic claudication Surgical History Acute meniscal tear of right knee Carpal boss of left wrist Carpal boss of right wrist Cubital bursitis of both elbows Family History Father CAD (coronary artery disease) Cancer Diabetes Denies family history of Clotting disorder Dementia Hyperlipidemia Psychiatric illness Chronic kidney disease (CKD) Suicide Anesthesia complication Bleeding disorder Family history of premature coronary artery disease Lung disease Hypertension Stroke Social History Smoking and tobacco status: current every day smoker Second hand smoke exposure: Yes Smoking risk assessment/counseling performed?: Yes Alcohol intake: former Year of sobriety/quit date alcohol: 8 Former alcohol use details: beer Desire information about alcohol rehabilitation?: No Counseling given: No Substance/Drug Use: never Desire information about substance/drug rehabilitation?: No Counseling given: No Adopted: Yes Caregiver/support person: No Lives independently: Yes Household members: none Housing: Apartment Marital status: Number of children: 4 Number of grandchildren: 9 Highest education level completed: Some College, No Degree service: No Current occupational status: retired Current occupation: plastics fabricator or welder Current occupational exposures/hazards: No Pets and animals: No Sexually active: No Do you think of yourself as: Decline to Answer Current gender identity: Male Special biju needs: No Agree to transfusion: Yes Financial difficulty paying for basics: Not Applicable Physical Exam Narrative: ThisThe patient is alert and cooperative. He has somewhat of a poor not quite fluent speech which appears to be due to a very ill fitting set of dentures which move around when he attempts to speak. He appears to be in no acute distress. He generally answers questions accurately the more pointed the more accurate the answer. When given the opportunity to have open-ended questions he tends to launch out into extended's dispersement of information that may or may not be pertinent to the question. Const: COMMON NORMALS: no acute distress, average body habitus and alert GENERAL APPEARANCE: cooperative and comfortable ORIENTATION/CONSCIOUSNESS: Yes awake and Yes oriented to person HENMT: COMMON NORMALS: normocephalic, atraumatic, Normal nasal mucous membranes and turbinates present, moist oral mucous membranes and oropharynx normal HEAD & SCALP: normocephalic and atraumatic; no contusion, no hematoma, no laceration and no scalp tenderness FACE & SINUS: normal facial exam and face symmetric NOSE: Normal nasal mucous membranes and turbinates present Eye: COMMON NORMALS: Equal, round and reactive pupils present, EOMs intact bilaterally and conjunctivae normal CONJUNCTIVA: Yes conjunctivae normal PUPIL: Yes Equal, round and reactive pupils present Neck/C-Spine: COMMON NORMALS: full ROM, no lymphadenopathy and supple Chest: COMMONS NORMALS: normal inspection of the chest and normal palpation of entire chest wall Resp: COMMON NORMALS: normal respiratory effort, No use of accessory muscles and clear to auscultation bilaterally EFFORT & INSPECTION: Yes able to speak in complete sentences AUSCULTATION: clear to auscultation bilaterally Cardio: COMMON NORMALS: regular rate, regular rhythm, No murmurs present (Cardio) and Peripheral pulses 2+ throughout RATE: regular rate RHYTHM: regular rhythm PERIPHERAL PULSES: Peripheral pulses 2+ throughout GI: COMMON NORMALS: Normal to inspection, nondistended, normoactive bowel sounds present, Soft to palpation and non-tender PALPATION: Yes Soft to palpation Back/Pelvis: COMMON NORMALS: no thoracic nor lumbar tenderness, thoraco-lumbar ROM normal and straight leg raise negative bilaterally PELVIS: Yes no pain with anterior-posterior compression OTHER: He has a midline lumbar surgical scar which appears to be well-healed without any erythema, drainage, local tenderness. He does have some tenderness over the left ischial area. He is able to have normal range of motion of the left hip without any discomfort or pain. Extremity: COMMON NORMALS: normal to inspection, full ROM, capillary refill normal, no joint enlargement, no calf tenderness and no pedal edema Neuro: COMMON NORMALS: moves all extremities, no focal motor deficits and no sensory deficits noted SENSORIUM/ORIENTATION: Yes alert and Yes oriented to person Psych: COMMON NORMALS: cooperative, denies hallucinations, denies homicidal ideation and denies suicidal ideation ATTITUDE: Yes calm ACTIVITY/MOTOR BEHAVIOR: Yes appropriate eye contact SPEECH: Yes excessive and Yes soft THOUGHT PROCESS: Circumstantial thought process present and disorganized INSIGHT: Limited insight present (Psych) Skin: COMMON NORMALS: no rashes or lesions noted, no wounds and turgor normal GENERAL SKIN EXAM: no rashes or lesions noted and turgor normal Course Reevaluation(s): Reevaluation #1: Reviewed current findings with patient as well as his son who is present. Son also provided additional insight that he has been seeing some gradual changes in his father's ability to provide appropriate answers and seemingly confused from time to time. He does feel that 2 days presentation is significantly different and he is noted over the past few weeks. Time: 14:12 Consultations: Consultation #1: Discussed with attending hospitalist Dr. Cabrales who agreed to accept the patient for admission. Time: 15:30 Vital Signs: Vital signs: Vital Signs Pulse Rate 68 11/26/22 13:30 Respiratory Rate 31 H 11/26/22 11:26 Blood Pressure 127/72 11/26/22 13:30 Pulse Oximetry 95 11/26/22 13:30 Oxygen Delivery Me thod Room Air 11/26/22 11:26 MDM - Altered Mental Status Medical Decision Making This person was transported to the emergency department limited history was obtained because of the patient's lack of insight and some confusion as to the circumstances which brought him here. History was also obtained from EMS. He allegedly was found in a home that was not his own and subsequently transported for what appeared to be a change in his normal mental status but we have no collaborating individual present at the time of his initial intake. His clinical exam revealed some localized tenderness to his left side of his pelvis without any obvious ecchymosis or crepitance etc. His mental status was alert and cooperative however he was somewhat limited in his insight and had some confusion. He had a recent spinal fusion but again that incision looks intact and he is afebrile here. There was a question whether he had a trip and fall last night as well. He will be worked up to determine if there is a reversible or otherwise pathologic cause of his current confusion and delirium. Work-up did not reveal any evidence to suggest alcohol intoxication, liver dysfunction, medications on board other than the anticipated opiates as well as THC. CT scan of the brain did not reveal any evidence of intracranial hemorrhage or other acute changes. He has chest x-ray and lumbar spine films were also reassuring without any evidence of pneumonia, hardware disruption etc. No evidence that suggest carbon oxide poisoning or other toxic metabolic contributions to his presentation other than the potential for medication misadventure. Further communication with his son revealed that there may be some concerned about dementia and that may be what we are seeing here is a progressive stepwise deterioration in cognitive function due to dementia. At this point I think it is reasonable to put him in observation and evaluate for permanent given that there may be some contribution of medications to his current presentation. Obviously further involvement of health care social worker may be indicated if he has found to have an irreversible delirium/dementia that will require additional care assistance. Medical Records I reviewed the patient's medical records. Most recent lumbar fusion as well as postoperative notes were reviewed. No evidence of concern about altered mentation, etc. at that time Lab Data I reviewed the patient's lab results. 11/26/22 11:47 11/26/22 12:34 Radiology Impressions Chest X-Ray 11/26/22 11:38 IMPRESSION: Negative chest exam. Head CT 11/26/22 11:38 IMPRESSION: Negative CT examination of the head. No acute intracranial abnormalities. Pelvis X-Ray 11/26/22 11:43 IMPRESSION: Stable exam. No acute abnormalities. Laboratory Results WBC 5.9 10^3/uL (4.0-10.0) 11/26/22 11:47 RBC 3.52 10^6/uL (4.1-5.3) L 11/26/22 11:47 Hgb 10.8 g/dL (11.7-16.6) L 11/26/22 11:47 Hct 33.8 % (42.0-52.0) L 11/26/22 11:47 MCV 96.0 fl (80-94) H 11/26/22 11:47 MCH 30.7 pg (28.0-34.0) 11/26/22 11:47 MCHC 32.0 g/dL (30.0-36.0) 11/26/22 11:47 RDW 13.8 % (12.1-15.1) 11/26/22 11:47 Plt Count 270 10^3/cmm (130-400) 11/26/22 11:47 MPV 9.2 fL (7.4-10.4) 11/26/22 11:47 Neut % (Auto) 66.0 % 11/26/22 11:47 Lymph % (Auto) 23.0 % 11/26/22 11:47 Braxton % (Auto) 7.5 % 11/26/22 11:47 Eos % (Auto) 2.4 % 11/26/22 11:47 Baso % (Auto) 0.9 % 11/26/22 11:47 Neut # (Auto) 3.87 10^3/uL (1.8-7.7) 11/26/22 11:47 Lymph # (Auto) 1.4 10^3/uL (0.8-4.8) 11/26/22 11:47 Braxton # (Auto) 0.4 10^3/uL (0.2-0.9) 11/26/22 11:47 Eos # (Auto) 0.1 10^3/uL (0.0-0.8) 11/26/22 11:47 Baso # (Auto) 0.1 10^3/uL (0.0-0.1) 11/26/22 11:47 Nucleated RBC % (auto) 0 % 11/26/22 11:47 Nucleated RBCs # 0.0 /100WBC 11/26/22 11:47 Specimen Type Arterial 11/26/22 12:07 Sample Site Radial, right 11/26/22 12:07 ABG pH 7.40 (7.35-7.45) 11/26/22 12:07 ABG pCO2 42.8 mmHg (35-45) 11/26/22 12:07 ABG pO2 85.4 mmHg (80.0-100.0) 11/26/22 12:07 ABG HCO3 26.5 mmol/L (22-26) H 11/26/22 12:07 ABG O2 Saturation 98.5 11/26/22 12:07 ABG Base Excess 1.5 mmol/L (-2.0-2.0) 11/26/22 12:07 Kirt Test Pos 11/26/22 12:07 A-a O2 Gradient 1.5 mmHg (5-10) L 11/26/22 12:07 Hematocrit 33.4 % (42-52) L 11/26/22 12:07 Hgb O2 Saturation 91.5 % (95-100) L 11/26/22 12:07 Carboxyhemoglobin 6.3 %THgb (0.4-20.1) 11/26/22 12:07 Methemoglobin 0.7 % (0.4-1.5) 11/26/22 12:07 Total Hemoglobin 10.9 g/dL (14-18) L 11/26/22 12:07 Sodium 137.0 mmol/L (131-143) 11/26/22 12:07 Potassium 4.2 mmol/L (3.5-5.0) 11/26/22 12:07 Glucose 114.0 mg/dL (70-115) 11/26/22 12:07 Ionized Calcium 1.2 mmol/L (1.1-1.4) 11/26/22 12:07 O2 Delivery Device Room air 11/26/22 12:07 FiO2 21.0 % 11/26/22 12:07 Retort Cooler ID [place] 11/26/22 12:07 Sodium 135 mmol/L (136-145) L 11/26/22 12:34 Potassium 4.2 mmol/L (3.5-5.1) 11/26/22 12:34 Chloride 100 mmol/L (98-107) 11/26/22 12:34 Carbon Dioxide 26 mmol/L (22-29) 11/26/22 12:34 Anion Gap 13.2 (5-19) 11/26/22 12:34 BUN 14 mg/dL (8-23) 11/26/22 12:34 Creatinine 0.7 mg/dL (0.7-1.2) 11/26/22 12:34 GFR Calculation 113.2 mL/min (90-130) 11/26/22 12:34 Glucose 114 mg/dL (65-115) 11/26/22 12:34 Calculated Osmolality 281 mOsm/kg (285-295) L 11/26/22 12:34 Calcium 8.5 mg/dL (8.5-10.5) 11/26/22 12:34 Total Bilirubin 0.2 mg/dL (0.15-1.2) 11/26/22 12:34 AST 10 U/L (0-40) 11/26/22 12:34 ALT 6 U/L (0-41) 11/26/22 12:34 Alkaline Phosphatase 57 U/L (40-130) 11/26/22 12:34 Ammonia 29 umol/L (16-60) 11/26/22 12:22 Total Protein 6.1 g/dL (6.6-8.7) L 11/26/22 12:34 Albumin 4.0 g/dL (3.5-5.2) 11/26/22 12:34 Globulin 2.1 g/dL (1.3-4.6) 11/26/22 12:34 TSH 1.11 uIU/mL (0.27-4.20) 11/26/22 12:34 Urine Color Dark yellow (Yellow) 11/26/22 11:45 Urine Appearance Clear (CLEAR) 11/26/22 11:45 Urine pH 5 (5-7) 11/26/22 11:45 Ur Specific Kirby 1.020 (1.005-1.030) 11/26/22 11:45 Urine Protein Neg (Negative) 11/26/22 11:45 Urine Glucose (UA) Norm (Normal) 11/26/22 11:45 Urine Ketones Negative (Negative) 11/26/22 11:45 Urine Blood Neg (Negative) 11/26/22 11:45 Urine Nitrate Negative (Negative) 11/26/22 11:45 Urine Bilirubin 1+ (Negative) H 11/26/22 11:45 Urine Urobilinogen 1 mg/dL (Negative) H 11/26/22 11:45 Ur Leukocyte Esterase Negative (Negative) 11/26/22 11:45 Salicylates 0.6 mg/dL (3-10) L 11/26/22 12:34 Urine Opiates Screen Positive ng/mL (Negative) H 11/26/22 11:45 Acetaminophen < 5.0 ug/mL (10-30) L 11/26/22 12:34 Ur Barbiturates Screen Negative ng/mL (Negative) 11/26/22 11:45 Ur Phencyclidine Scrn Negative ng/mL (Negative) 11/26/22 11:45 Ur Amphetamines Screen Negative ng/mL (Negative) 11/26/22 11:45 U Benzodiazepines Scrn Negative ng/mL (Negative) 11/26/22 11:45 Urine Cocaine Screen Negative ng/mL (Negative) 11/26/22 11:45 U Marijuana (THC) Screen Positive ng/mL (Negative) H 11/26/22 11:45 Ethyl Alcohol < 10 mg/dL (0-10) 11/26/22 12:34 Discharge Plan Discharge Patient Disposition: Placed in Observation Clinical Impression: Delirium Coding Level of Care Code ED Arts Administrator Or Manager for Melia Stratton
[2022-11-26 11:52] LABS: Basophils # 0.1 10^3/uL (0.0-0.1); Basophils % 0.9 %; Eosinophils # 0.1 10^3/uL (0.0-0.8); Eosinophils % 2.4 %; Hematocrit 33.8 % (42.0-52.0); Hemoglobin 10.8 g/dL (11.7-16.6); Lymphocytes # 1.4 10^3/uL (0.8-4.8); Mean Corpuscular Hemoglobin 30.7 pg (28.0-34.0); Mean Platelet Volume 9.2 fL (7.4-10.4); Monocytes # 0.4 10^3/uL (0.2-0.9); Monocytes % 7.5 %; Neutrophils # 3.87 10^3/uL (1.8-7.7); Nucleated Red Blood Cells % 0 %; Platelet Count 270 10^3/cmm (130-400); Red Blood Count 3.52 10^6/uL (4.1-5.3); Red Cell Distribution Width 13.8 % (12.1-15.1); White Blood Count 5.9 10^3/uL (4.0-10.0)
[2022-11-26 11:53] LABS: Add Urine Microscopic? NO; Charge for UA Resulting for Rev
[2022-11-26 12:00] LABS: Bilirubin Urine 1+ (Negative); Blood Urine Neg (Negative); Glucose Urine UA Norm (Normal); Ketones Urine Negative (Negative); Leukocyte Esterase Urine Negative (Negative); Nitrate Urine Negative (Negative); Protein Urine Neg (Negative); Urine Appearance Clear (CLEAR); Urine Color Dark Yellow (Yellow); Urobilinogen Urine 1 mg/dL (Negative); pH Urine 5 (5-7)
[2022-11-26 12:09] LABS: Amphetamines Screen Urine Negative (Negative); Barbiturates Screen Urine Negative (Negative); Benzodiazepines Screen Urine Negative (Negative); Cocaine Screen Urine Negative (Negative); Opiate Screen Urine Positive (Negative); PCP Screen Urine Negative (Negative); THC Screen Urine Positive (Negative)
[2022-11-26 12:18] LABS: ABG PCO2 42.8 mmHg (35-45); Alveolar-Arterial Oxygen Gradi 1.5 mmHg (5-10); Arterial Blood Gas Hematocrit 33.4 % (42-52); Base Excess ABG 1.5 mmol/L (-2.0-2.0); Blood Gas Allen Test Pos; Blood Gas Operator Identificat WALCI; Blood Gas Sample Site Radial, right; Blood Gas Sample Type Arterial; Carboxyhemoglobin 6.3 %THgb (0.4-20.1); HCO3 ABG 26.5 mmol/L (22-26); HGB O2 Sat 91.5 % (95-100); Ionized Calcium Level - ABG 1.2 mmol/L (1.1-1.4); Methemoglobin 0.7 % (0.4-1.5); Oxygen Device ROOM AIR; Oxygen Saturation ABG 98.5; PO2 ABG 85.4 mmHg (80.0-100.0); Potassium Level - ABG 4.2 mmol/L (3.5-5.0); Total Hemoglobin 10.9 g/dL (14-18)
[2022-11-26] MEDS: sodium chloride 0.9% 1,000 ML 999 ML IV (12:25)
--- NOTE | 2022-11-26 12:38 | PC.PHAR ---
pt states he takes care of his own medications-pt states he takes the medications entered-[facility] norco 10-325mg 2 tabs po q6h prn filled on 11/23/22 30d/s #240 tabs [facility] filled 11/19/22 1-2 tabs q4-6h prn 5d/s-
[2022-11-26 12:42] LABS: Ammonia 29 umol/L (16-60)
[2022-11-26 13:05] LABS: Alanine Aminotransferase 6 U/L (0-41); Alkaline Phosphatase 57 U/L (40-130); Anion Gap 13.2 (5-19); Aspartate Amino Transferase 10 U/L (0-40); Blood Urea Nitrogen 14 mg/dL (8-23); Calcium 8.5 mg/dL (8.5-10.5); Carbon Dioxide 26 mmol/L (22-29); Chloride 100 mmol/L (98-107); Creatinine Clr Calc Pharmacy 85.6393; Globulin 2.1 g/dL (1.3-4.6); Glomerular Filtration Rate 113.2 mL/min (90-130); Glucose 114 mg/dL (65-115); Osmolality Calculated 281 mOsm/kg (285-295); Potassium 4.2 mmol/L (3.5-5.1); Salicylate 0.6 mg/dL (3-10); Sodium 135 mmol/L (136-145); Thyroid Stimulating Hormone 1.11 uIU/mL (0.27-4.20); Total Bilirubin 0.2 mg/dL (0.15-1.2); Total Protein 6.1 g/dL (6.6-8.7)
[2022-11-26 13:06] LABS: Acetaminophen < 5.0 ug/mL (10-30); Alcohol Level < 10 mg/dL (0-10)
--- NOTE | 2022-11-26 15:15 | CTR_ITS ---
PROCEDURE INFORMATION: Exam: CT Chest Without Contrast; Diagnostic Exam date and time: 11/26/2022 4:12 PM Age: 67 years old Clinical indication: Other: Weight loss; Prior surgery; Surgery date: 6+ months; Surgery type: Lumbar; Additional info: Weight loss, AMS TECHNIQUE: Imaging protocol: Diagnostic computed tomography of the chest without contrast. Radiation optimization: All CT scans at this facility use at least one of these dose optimization techniques: automated exposure control; mA and/or kV adjustment per patient size (includes targeted exams where dose is matched to clinical indication); or iterative reconstruction. REPORTING DATA: Count of CT and Cardiac NM exams in prior 12 months: This patient has received 0 known CTs and 0 known cardiac nuclear medicine studies in the 12 months prior to the current study. COMPARISON: CR XR chest 1V portable [id number] 11/26/2022 11:49 AM RADIATION DOSE METRICS: Total DLP (mGy-cm): 459 FINDINGS: Lungs: Small calcified granulomas both lung stratton, benign. Few perifissural pulmonary nodules both lung stratton, benign. No suspicious pulmonary nodules detected. Chronic granulomatous calcifications within the left hilum. Pleural spaces: Unremarkable. No pneumothorax. No pleural effusion. Heart: Heart is not significantly enlarged. No significant coronary artery calcifications. No significant pericardial effusion. Lymph nodes: No enlarged lymph nodes detected. Vasculature: Unremarkable. No aortic aneurysm. Bones/joints: Multiple compression fractures throughout the thoracic spine likely longstanding. No acute bony abnormalities or suspicious bone lesions detected. Soft tissues: Unremarkable. PROCEDURE INFORMATION: Exam: CT Abdomen And Pelvis Without Contrast Exam date and time: 11/26/2022 4:12 PM Age: 67 years old Clinical indication: Other: Weight loss; Prior surgery; Surgery date: 6+ months; Surgery type: Lumbar; Additional info: Weight loss, AMS TECHNIQUE: Imaging protocol: Computed tomography of the abdomen and pelvis without contrast. Radiation optimization: All CT scans at this facility use at least one of these dose optimization techniques: automated exposure control; mA and/or kV adjustment per patient size (includes targeted exams where dose is matched to clinical indication); or iterative reconstruction. REPORTING DATA: Count of CT and Cardiac NM exams in prior 12 months: This patient has received 0 known CTs and 0 known cardiac nuclear medicine studies in the 12 months prior to the current study. COMPARISON: CR XR pelvis 1-2V* [id number] 11/26/2022 11:52 AM RADIATION DOSE METRICS: Total DLP (mGy-cm): 459 FINDINGS: Lungs: Scattered granulomatous calcifications within the spleen, chronic otherwise spleen is unremarkable. Liver: Normal. No mass. Gallbladder and bile ducts: Normal. No calcified stones. No ductal dilation. Pancreas: Normal. No ductal dilation. Spleen: Normal. No splenomegaly. Adrenal glands: Normal. No mass. Kidneys and ureters: Normal. No hydronephrosis. Stomach and bowel: Moderate degree of retained stool throughout the large bowel that may reflect some degree of constipation. Appendix: No evidence of appendicitis. Intraperitoneal space: Unremarkable. No free air. No significant fluid collection. Vasculature: Unremarkable. No abdominal aortic aneurysm. Lymph nodes: Unremarkable. No enlarged lymph nodes. Urinary bladder: Unremarkable as visualized. Reproductive: Unremarkable as visualized. Bones/joints: Wedge-shaped compression fracture L1 and L4 vertebral bodies, likely longstanding. Posterior decompression laminectomy L4 and L5 stabilized by posterolateral spinal instrumentation and interbody spacers at L4-L5. Additional syndesmotic placed across the sacroiliac joints. No suspicious bone lesions detected. Soft tissues: Unremarkable. CT/[place] [id number] IMPRESSION: 1. No evidence of intrathoracic malignancy. 2. Multiple compression fractures of the thoracic spine, likely chronic. IMPRESSION: 1. No evidence of abdominal or pelvic malignancy. 2. Postsurgical changes lower lumbar spine with mild compression fractures L1 and L4 vertebral bodies, likely longstanding.
--- NOTE | 2022-11-26 15:15 | CTR_ITS ---
PROCEDURE INFORMATION: Exam: CT Lumbar Spine Without Contrast Exam date and time: 11/26/2022 4:12 PM Age: 67 years old Clinical indication: Low back pain; Prior surgery; Surgery date: 6+ months; Surgery type: Fusion; Additional info: Lumbar pain TECHNIQUE: Imaging protocol: Computed tomography of the lumbar spine without contrast. Radiation optimization: All CT scans at this facility use at least one of these dose optimization techniques: automated exposure control; mA and/or kV adjustment per patient size (includes targeted exams where dose is matched to clinical indication); or iterative reconstruction. REPORTING DATA: Count of CT and Cardiac NM exams in prior 12 months: This patient has received 0 known CTs and 0 known cardiac nuclear medicine studies in the 12 months prior to the current study. COMPARISON: MR lumbar spine wo con* [id number] 04/27/2022 9:13 AM RADIATION DOSE METRICS: Total DLP (mGy-cm): 407 FINDINGS: Bones/joints: Lumbar curvature and alignment is unremarkable. Mild chronic compression fractures of L1 and L4 vertebral bodies unchanged. Patient has since undergone spinal decompression and fusion with posterolateral spinal instrumentation extending from L4 through S2 and interbody spacers at L4-L5 and L5-S1. There are additional syndesmotic screws coursing through the sacroiliac joints bilaterally. Hardware is intact. Bone metal interface is unremarkable. Soft tissues: There is extensive metallic artifact emanating from patient's spinal hardware limiting assessment of the soft tissues and spinal canal. At L4 and L5. The remainder of the paraspinal soft tissues are unremarkable. CT/CT lumbar spine wo con* [id number] IMPRESSION: 1. Postoperative changes from lower lumbar spinal fusion. No compelling evidence of hardware failure. 2. Stable chronic compression fractures L1 and L4 vertebral bodies. 3. Limited assessment of the lower lumbar spinal canal at the site of fusion due to extensive metallic artifact. Findings could be better assessed on MRI exam or CT myelography if clinically warranted.
--- NOTE | 2022-11-26 15:18 | ECG_ITS ---
[facility] Test Date: 2022-11-26 Pat Name: Harlan Copeland Department: Room: Gender: Male Export [employer] Department Manager: : 1955 Requested By: Ramez Whelan Order Number: [id number] Isabell MD: Marylou Fletcher M.D. Measurements Intervals [place] Rate: 79 P: 0 CT: 0 QRS: 70 QRSD: 81 T: 61 QT: 373 QTc: 430 Interpretive Statements SINUS RHYTHM WITH FREQUENT PAC'S AND SHORT RUN OF ATRIAL TACHYCARDIA Compared to ECG 11/26/2022 12:39:07 Sinus rhythm no longer present Electronically Signed On 11-26-2022 17:14:10 CDT by Marylou Fletcher M.D. [id number]
--- NOTE | 2022-11-26 15:20 | P.HP_ITS ---
Providers/Chief Complaint Primary Care Provider: Reji Sheppard MD Chief Complaint: ams History of Present Illness Harlan Copeland is a 67 year old male with a past medical history of chronic lumbar spinal disease, status post lumbar fusion 10/19/2022, no history of COPD, no history of CVA no history of CAD, no history of dementia, who originally is from [place] but a year ago moved to [place] to be with his son, is not ma rried, who presents to [facility] due to altered mental status. Patient tells me that he does not remember the events of this morning, he tells me that he fell asleep around 11 or so, his [id number] made him dinner, and he went to bed, no recent illness, no fevers, no cough, no headache, blurry vision is chronic back pain, even after his back surgery, he is ambulating without significant symptomatology no urine incontinence no bowel incontinence no history of seizures, on no facial droop no slurring of his words no focal weakness no focal paresthesias, he does not know how he ended up in a another person's house, another person who I do not know possibly a neighbor, found pa tient inside their home, and called the police, EMS noticed that he was confused about the situation was confabulating stories, blood sugar was over 100, he appearing to nursing staff and ER physician has had episodes of confusion, currently alert and oriented x3, following all commands his responses sometimes do seem delayed, denies any IV drug use, does report hydrocodone use, he tells me that he does not use more than prescribed, the last time he needed a refill he needed to 2 days early, denies any other medication use, no recent illness, no fevers, no cough no recent travel he lives at home by himself, he is retired, he is on disability, he is able to name all his son's name, he is 9 grandkids, able to name their names, Review of Systems Const: Denies: fever(s), chills, fatigue or malaise Eyes: Denies: change in vision or blurry vision ENMT: Denies: nasal congestion Resp: Denies: dyspnea, productive cough, non-productive cough or wheezing GI: Denies: abdominal pain, nausea, vomiting, hematemesis, diarrhea, constipation, hematochezia or melena : Denies: flank pain, difficulty urinating, dysuria or urinary frequency Musc: Denies: neck pain or back pain Skin/Breast: Denies: rash Neuro: Denies: headache(s), dizziness or vertigo Psych: Denies: anxiety or depression Endo: Denies: polyuria or polydipsia Medications/Allergies Home Medications Medication Instructions Recorded Confirmed Last Taken Type Intraoperative Neurophysiological #1 ea 10/08/22 11/26/22 Unknown Rx Testing amitriptyline 75 mg tablet 75 mg PO BEDTIME 11/26/22 11/26/22 Unknown History docusate sodium 100 mg capsule 100 mg PO DAILY PRN Constipation 11/26/22 11/26/22 Unknown History (Stool Softener) hydrocodone 10 mg-acetaminophen 2 tab PO Q6H PRN Pain 11/26/22 11/26/22 Unknown History 325 mg tablet omeprazole magnesium 20 mg 20 mg PO DAILY 11/26/22 11/26/22 Unknown History tablet,delayed release (Prilosec OTC) tizanidine 2 mg tablet 6 mg PO Q8H PRN Muscle Spasm 11/26/22 11/26/22 Unknown History trazodone 100 mg tablet 200 mg PO BEDTIME 11/26/22 11/26/22 Unknown History Allergies Allergy/AdvReac Type Severity Reaction Status Date / Time No Known Allergies Allergy Verified 11/26/22 12:27 PFSH Acute PFSH: Medical History DDD (degenerative disc disease), lumbosacral Facet arthritis, degenerative, lumbar spine Lumbar spondylosis Spinal stenosis, lumbar region, with neurogenic claudication Surgical History Acute meniscal tear of right knee Carpal boss of left wrist Carpal boss of right wrist Cubital bursitis of both elbows Family History Father CAD (coronary artery disease) Cancer Diabetes Denies family history of Clotting disorder Dementia Hyperlipidemia Psychiatric illness Chronic kidney disease (CKD) Suicide Anesthesia complication Bleeding disorder Family history of premature coronary artery disease Lung disease Hypertension Stroke Social History Smoking and tobacco status: current every day smoker Second hand smoke exposure: Yes Smoking risk assessment/counseling performed?: Yes Alcohol intake: former Year of sobriety/quit date alcohol: 8 Former alcohol use details: beer Desire information about alcohol rehabilitation?: No Counseling given: No Substance/Drug Use: never Desire information about substance/drug rehabilitation?: No Counseling given: No Adopted: Yes Caregiver/support person: No Lives independently: Yes Household members: none Housing: Apartment Marital status: Number of children: 4 Number of grandchildren: 9 Highest education level completed: Some College, No Degree service: No Current occupational status: retired Current occupation: second class welder Current occupational exposures/hazards: No Pets and animals: No Sexually active: No Do you think of yourself as: Decline to Answer Current gender identity: Male Special biju needs: No Agree to transfusion: Yes Financial difficulty paying for basics: Not Applicable Vitals/I&O/Wt Last Vital Signs Pulse 68 11/26/22 13:30 Resp 31 H 11/26/22 11:26 BP 127/72 11/26/22 13:30 Pulse Ox 95 11/26/22 13:30 O2 Del Method Room Air 11/26/22 11:26 Weight last 48 hrs Weight 65.771 kg Physical Exam Const: COMMON NORMALS: no acute distress and patient oriented x3 GENERAL APPEARANCE: cooperative, well kempt and well developed HENMT: COMMON NORMALS: normocephalic and Normal external nose present HEAD & SCALP: normocephalic FACE & SINUS: normal facial exam NOSE: Normal external nose present MOUTH: Normal oral and palatal mucosa present Eye: COMMON NORMALS: Equal, round and reactive pupils present, EOMs intact bilaterally, conjunctivae normal and no scleral icterus CONJUNCTIVA: Yes conjunctivae normal PUPIL: Yes Equal, round and reactive pupils present Neck/C-Spine: COMMON NORMALS: full ROM, no lymphadenopathy, no meningeal sig ns, no JVD, Thyroid normal and No carotid bruits THYROID: Thyroid normal Lymph: LYMPHATIC: no lymphadenopathy noted Chest: COMMONS NORMALS: normal inspection of the chest Resp: COMMON NORMALS: normal respiratory effort, No retractions, No use of accessory muscles and clear to auscultation bilaterally AUSCULTATION: clear to auscultation bilaterally Cardio: COMMON NORMALS: no JVD, regular rate, regular rhythm, S1 normal heart sound present, S2 normal heart sound present, No murmurs present (Cardio) and Peripheral pulses 2+ throughout RATE: regular rate RHYTHM: regular rhythm HEART SOUNDS: S1 normal heart sound present and S2 normal heart sound present PERIPHERAL PULSES: Peripheral pulses 2+ throughout GI: COMMON NORMALS: Normal to inspection, nondistended, normoactive bowel sounds present, Soft to palpation, non-tender and No hepatosplenomegaly present PALPATION: Yes Soft to palpation and Yes No hepatosplenomegaly present : COMMON NORMALS: Yes no CVA tenderness BLADDER/KIDNEY EXAM: Yes no CVA tenderness Back/Pelvis: COMMON NORMALS: no CVA tenderness Extremity: COMMON NORMALS: normal to inspection, full ROM, capillary refill normal, no calf tenderness and no pedal edema Neuro: COMMON NORMALS: patient oriented x3, CN's II-XII intact bilaterally, moves all extremities, no focal motor deficits and no sensory deficits noted MENINGEAL SIGNS: Yes no meningeal signs Psych: COMMON NORMALS: mental status grossly normal, Normal thought process present, cooperative and speech normal APPEARANCE: Yes well kempt SPEECH: Yes normal speech THOUGHT PROCESS: Normal thought process present Skin: COMMON NORMALS: turgor normal and no jaundice GENERAL SKIN EXAM: turgor normal Data 11/26/22 11:47 11/26/22 12:34 A&P Assessment and plan (1) Altered mental status: Plan Altered mental status -Etiology unclear -Currently alert oriented x3, following all commands, no focal neurologic deficits no facial droop no slurring of words, no seizure-like episodes, no saddle apparent anesthesia, -I cannot really discern any significant symptoms except mental slowing -He does not remember the events of this morning does not remember how he got where he was found details are vague Plan -Could be transient global amnesia -Will order CT chest abdomen pelvis as a complains of weight loss -CT lumbar spine, as he is complaining of back pain -Blood cultures -Carotid artery ultrasound -B12, folate -If work-up comes back negative, and his symptomatology presents we will consider MRI -CRP, Pro-Bryant -Neurochecks, NIH stroke scale, aspiration precautions -Full code -Lovenox for DVT prophylaxis Attestations Medical Necessity Statement*: Patient requires hospitalization, outpatient with observation for altered mental status Coding Level of Care Code Acute Code for Chg Fwd Diagnoses Altered mental status R41.82
--- NOTE | 2022-11-26 15:20 | USCV_ITS ---
Harlan Copeland Age: 67 Gender: M : 1955 Exam Date: 11/26/2022 15:30 Ordering Phys: Ramez Whelan MD Technologist: Helder Sierra Exam Location: [facility] Indication: syncope Risk Factors: Previous Vascular Surgery: Right Brachial BP: / Left Brachial BP: / Right Left Velocity (cm/s) Spectral Plaque Velocity (cm/s) Spectral Plaque Syst/Diast Broadening Syst/Diast Broadening 79.40/ 16.50 Prox CCA 91.50 / 16.50 70.60/ 9.90 Mid CCA 79.40 / 11.00 48.50/ 12.10 Distal CCA 52.90 / 7.70 72.80/ 18.70 Prox ICA 110.30/ 22.10 98.10/ 22.10 Mid ICA 126.80/ 32.00 91.50/ 28.70 Distal ICA 90.40 / 25.40 118.00 ECA 104.70 1.24 ICA/CCA 1.39 Antegrade Vertebral Antegrade 48.50/ 9.90 cm/s 58.40/ 15.40 cm/s Bi Subclavian Bi 95.90 111.4 0 CONCLUSIONS Right ICA stenosis <50%. Mild atheromatous plaque right carotid bulb/ICA. Left ICA stenosis <50%. Moderate atheromatous plaque left carotid bulb/ICA. Normal antegrade Doppler flow noted in the right vertebral artery. Normal antegrade Doppler flow noted in the left vertebral artery. Nic Del Real MD (Electronically Signed) Final Date: 26 November 2022 16:59 S
[2022-11-26] MEDS: enoxaparin 40 mg/0.4 mL Syringe SUBCUT (15:41)
[2022-11-26] MEDS: ketorolac 30 mg/mL INJ 15 MG IVP (15:43)
[2022-11-26 16:22] LABS: Troponin(5th) Baseline 13 ng/L (0-15)
[2022-11-26 16:24] LABS: Lactic Sepsis W/Reflex 0.9 mmol/L (0.5-2.2); Lipase 12 U/L (13-60)
[2022-11-26 16:31] LABS: Procalcitonin 0.03 ng/mL (0-0.5)
--- NOTE | 2022-11-26 17:58 | ECG_ITS ---
[facility] Test Date: 2022-11-26 Pat Name: Harlan Copeland Department: Room: 263 Gender: Male Continuous Improvement Facilitator: : 1955 Requested By: Ramez Whelan Order Number: [id number] Isabell MD: Marylou Fletcher M.D. Measurements Intervals [place] Rate: 67 P: 42 WI: 178 QRS: 72 QRSD: 74 T: 67 QT: 375 QTc: 396 Interpretive Statements SINUS RHYTHM SEPTAL MYOCARDIAL INFARCTION , OF INDETERMINATE AGE [40+ ms Q WAVE IN V1/V2] Compared to ECG 11/26/2022 15:23:57 Myocardial infarct finding now present Electronically Signed On 11-27-2022 6:58:43 CDT by Marylou Fletcher M.D. [id number]
[2022-11-26 19:11] LABS: Troponin 5 2HR 12.47 ng/L (0-15); Troponin 5 2HR Delta -0.53 ABS# (0-10)
[2022-11-26 19:23] LABS: Vitamin B12 404 pg/mL (232-1245)
[2022-11-26 19:24] LABS: Folate Level 5.5 ng/mL (4.5-32.2)
--- NOTE | 2022-11-26 21:18 | ECG_ITS ---
[facility] Test Date: 2022-11-26 Pat Name: Harlan Copeland Department: Room: 263 Gender: Male All Source Analyst: : 1955 Requested By: Ramez Whelan Order Number: [id number] Isabell MD: Marylou Fletcher M.D. Measurements Intervals [place] Rate: 65 P: 45 AK: 151 QRS: 77 QRSD: 82 T: 73 QT: 389 QTc: 404 Interpretive Statements SINUS RHYTHM SEPTAL MYOCARDIAL INFARCTION , OF INDETERMINATE AGE [40+ ms Q WAVE IN V1/V2] Compared to ECG 11/26/2022 17:58:40 No significant changes Electronically Signed On 11-27-2022 6:51:01 CDT by Marylou Fletcher M.D. [id number]
[2022-11-26] MEDS: acetaminophen 325 mg Tablet 650 MG PO (21:33)
[2022-11-26 22:32] LABS: Troponin 5 6HR 12.84 ng/L (0-15); Troponin 5 6HR Delta -0.16 ng/L (0-12)
[2022-11-27] VITALS (9 sets, daily range): BP systolic 122–137; BP diastolic 64–71; PULSE 60–88; RESP 16–18; TEMP 36.6–36.9; O2SAT 95–98
[2022-11-27] MEDS: HYDROcodone-acetaminophen 5-325 mg Tablet 1 TAB PO ×3 (00:08→10:06)
[2022-11-27 05:30] LABS: Basophils % 0.8 %; Eosinophils # 0.2 10^3/uL (0.0-0.8); Eosinophils % 3.1 %; Hematocrit 33.2 % (42.0-52.0); Hemoglobin 10.7 g/dL (11.7-16.6); Lymphocytes # 2.2 10^3/uL (0.8-4.8); Lymphocytes % 46.3 %; Mean Corpuscular HGB Conc 32.2 g/dL (30.0-36.0); Mean Corpuscular Hemoglobin 30.7 pg (28.0-34.0); Mean Corpuscular Volume 95.1 fl (80-94); Mean Platelet Volume 9.2 fL (7.4-10.4); Monocytes # 0.4 10^3/uL (0.2-0.9); Monocytes % 8.5 %; Neutrophils # 1.98 10^3/uL (1.8-7.7); Neutrophils % 41.1 %; Nucleated Red Blood Cells % 0 %; Platelet Count 258 10^3/cmm (130-400); Red Blood Count 3.49 10^6/uL (4.1-5.3); Red Cell Distribution Width 13.6 % (12.1-15.1); White Blood Count 4.8 10^3/uL (4.0-10.0)
[2022-11-27 05:50] LABS: Blood Urea Nitrogen 14 mg/dL (8-23); Calcium 8.4 mg/dL (8.5-10.5); Carbon Dioxide 27 mmol/L (22-29); Chloride 106 mmol/L (98-107); Creatinine Clr Calc Pharmacy 85.6393; Glomerular Filtration Rate 166.9 mL/min (90-130); Glucose 92 mg/dL (65-115); Osmolality Calculated 290 mOsm/kg (285-295); Sodium 140 mmol/L (136-145)
[2022-11-27] MEDS: pantoprazole DR 40 mg Tablet PO (08:30)
[2022-11-27] MEDS: acetaminophen 325 mg Tablet 650 MG PO (08:30)
--- NOTE | 2022-11-27 09:38 | MR_ITS ---
WS: [id number] MRI BRAIN WITHOUT CONTRAST HISTORY: ams COMPARISON: None available. TECHNIQUE: Diffusion imaging, multiplanar T1, T2 and FLAIR imaging obtained. No evidence for acute infarct or hemorrhage. Hsieh-white matter differentiation is normal. Mild atrophy is symmetric. Mild small vessel ischemic type changes in the periventricular and subcort ical white matter. No prior infarct. LEFT hippocampus appears slightly smaller than the RIGHT. Ventricles and extra-axial spaces are normal. No inferior displacement of cerebellar tonsils. The sella turcica and pituitary gland are unremarkabl e. Dural venous sinuses and united [place] demonstrate no abnormality on this unenhanced studies. Paranasal sinuses: Clear. Mastoid air cells: Small amount of fluid in the LEFT mastoid air cells. Calvarium and scalp: Intact. IMPRESSION: 1. No acute infarct or hemorrhage. 2. Mild atrophy LEFT hippocampus. 3. No prior infarct. 4. Mild small vessel ischemic changes.
--- NOTE | 2022-11-27 10:00 | PC.CHAP ---
Pastoral Care Encounter/Spiritual Assessment Type of Contact [] Declined reproduction order processor visit [] Patient/Family/Request visit [] Outpatient visit [] Follow-up visit [] Physician referral [] Code/Alert [] Routine visit [] Staff referral [] Actively dying [x] Patient sleeping [] Family support [] [] Out of room [] Palliative care [] [] Receiving care in room [] Pre-surgical visit [] Trauma [] Long length of stay [] ICU visit [] Other: Relational/Emotional Strength [] Patient feels connected with others/family/visitors/staff [] Distress [] Loneliness/isolation [] Abandonment Spirituality of Patient [] Person of Daja [] Attends Orthodox of their Daja [] Believes in Prayer [] Reads Bible or Religion materials [] There are Spiritual issues to be addressed Retail Special Event Associate Interventions [] Prayer [] Active listening [] Non-anxious presence [] Spiritual/emotional support [] Crisis/trauma care [] Spiritual counseling [] Bereavement support [] Provided bereavement packet [] Provided Bible/devotional materials [] Provided toy/stuffed animal, coloring book to patient or family member [] Provided Communion [] Anointing/Wilder [] Salvation [] Completed spiritual assessment [] Other: Impact on Illness or Injury [] Angry [] Fearful [] Anxious [] Often cries [] Exhaustion [] Unable to work [] Unable to attend hinduism [] Unable to walk/stand [] Unable to read [] Unable to drive [] Unable to eat/drink [] Unable to sleep [] Unable to be with family [] Patient intubated [] Other: Summary Time spent with patient
--- NOTE | 2022-11-27 10:38 | PC.NURSE ---
MRI procedure screening form completed
[2022-11-27] MEDS: HYDROcodone-acetaminophen 10-325 mg Tablet 1 TAB PO (13:10)
--- NOTE | 2022-11-27 13:34 | PC.NURSE ---
Discharge pending MRI
--- NOTE | 2022-11-27 14:18 | P.DS_ITS ---
Discharge Providers Date of Admission: 11/26/22 15:15 Date of Discharge: November 27, 2022 Attending Provider at Admission: Ramez Whelan MD Attending Provider at Discharge: Ramez Whelan MD Primary Care Provider: Reji Sheppard MD Diagnoses at Discharge Discharge Diagnosis (1) Altered mental status: Status: Acute Reason for Visit Reason for Visit: [facility] [address] Hospital Course Hospital Course Harlan Copeland is a 67 year old male with a past medical history of chronic lumbar spinal disease, status post lumbar fusion 10/19/2022, no history of COPD, no history of CVA no history of CAD, no history of dementia, who originally is from [place] but a year ago moved to [place] to be with his son, is not , who presents to [facility] due to altered mental status.? Patient tells me that he does not remember the events of this morning, he tells me that he fell asleep around 11 or so, his [id number] made him dinner, and he went to bed, no recent illness, no fevers, no cough, no headache, blurry vision is chronic back pain, even after his back surgery, he is ambulating without significant symptomatology no urine incontinence no bowel incontinence no history of seizures, on no facial droop no slurring of his words no focal we akness no focal paresthesias, he does not know how he ended up in a another person's house, another person who I do not know possibly a neighbor, found patient inside their home, and called the police, EMS noticed that he was confused about the situation was confabulating stories, blood sugar was over 100, he appearing to nursing staff and ER physician has had episodes of confusion, currently alert and oriented x3, following all commands his responses sometimes do seem delayed, denies any IV drug use, does report hydrocodone use, he tells me that he does not use more than prescribed, the last time he needed a refill he needed to 2 days early, denies any other medication use, no recent illness, no fevers, no cough no recent travel he lives at home by himself, he is retired, he is on disability, he is able to name all his son's name, he is 9 grandkids, able to name their names Patient was admitted to [facility] for altered mental status, on admission, he is alert oriented x3, following all commands, did have some degree of cognitive slowing, did not have any recollection of the events prior,, no significant UTI, no UA evidence of a UTI, chest x-ray no focal pneumonia, CT [address] abdomen pelvis no acute findings, CT lumbar spine, no acute findings, does have chronic back pain, head CT no acute findings, no significant electrolyte abnormalities, carotid artery ultrasound within normal limits, EKG no acute ST-T wave changes, blood alcohol within normal limits, marijuana screen was positive opiate screen was positive he is on chronic opiates, B12 within normal limits, folate within normal limits, TSH within normal limits. Likely etiology behind patient's altered mental status was transient global amnesia patient is a smoker, strongly advised for abstain from smoking, discharged on aspirin, statin, with a close follow-up with neurology. If he were to have any recurrent symptoms, strokelike symptoms to call 911. brain MRI showed IMPRESSION: 1.? No acute infarct or hemorrhage. 2.? Mild atrophy LEFT hippocampus. 3.? No prior infarct. 4.? Mild small vessel ischemic changes. Physical Exam Const: COMMON NORMALS: no acute distress and patient oriented x3 GENERAL APPEARANCE: cooperative and well developed Neck/C-Spine: COMMON NORMALS: full ROM, no lymphadenopathy, Thyroid normal and No carotid bruits THYROID: Thyroid normal Lymph: LYMPHATIC: no lymphadenopathy noted Chest: COMMONS NORMALS: normal inspection of the chest Resp: COMMON NORMALS: normal respiratory effort, No retractions, No use of accessory muscles and clear to auscultation bilaterally AUSCULTATION: clear to auscultation bilaterally Cardio: COMMON NORMALS: regular rate, regular rhythm, S1 normal heart sound present, S2 normal heart sound present, No murmurs present (Cardio) and Peripheral pulses 2+ throughout RATE: regular rate RHYTHM: regular rhythm HEART SOUNDS: S1 normal heart sound present and S2 normal heart sound present PERIPHERAL PULSES: Peripheral pulses 2+ throughout GI: COMMON NORMALS: Normal to inspection, nondistended, normoactive bowel sounds present, Soft to palpation, non-tender and No hepatosplenomegaly present PALPATION: Yes Soft to palpation and Yes No hepatosplenomegaly present Neuro: COMMON NORMALS: patient oriented x3 and CN's II-XII intact bilaterally Discharge Data Studies Completed and Pending Completed Studies During Hospitalization Category Date Time Status CT chest abdomen pelvis [[place] [id number] Cat Scan 11/26/22 15:15 Completed ] Stat CT head wo con* [id number] Stat Cat Scan 11/26/22 11:[address] lumbar spine wo con* [id number] Stat Cat Scan 11/26/22 15:15 Completed XR chest 1V portable [id number] Stat Exams 11/26/22 11:38 Completed XR pelvis 1-2V* [id number] Stat Exams 11/26/22 11:43 Completed CV carotid duplex BI* [id number] Stat Ultrasound 11/26/22 15:20 Completed Pending at discharge Category Date Time Status Basic Metabolic Panel AM LABS Lab 11/28/22 04:00 Ordered Basic Metabolic Panel AM LABS Lab 11/29/22 04:00 Ordered Blood Culture Routine Lab 11/26/22 15:54 Results Complete Blood Count w/Auto AM LABS Lab 11/28/22 04:00 Ordered Complete Blood Count w/Auto AM LABS Lab 11/29/22 04:00 Ordered MR head wo con* [id number] Stat MRI 11/27/22 09:38 Ordered Radiology Impressions Chest X-Ray 11/26/22 11:38 IMPRESSION: Negative chest exam. Head CT 11/26/22 11:38 IMPRESSION: Negative CT examination of the head. No acute intracranial abnormalities. Pelvis X-Ray 11/26/22 11:43 IMPRESSION: Stable exam. No acute abnormalities. Chest/Abdomen/Pelvis CT 11/26/22 15:15 IMPRESSION: 1. No evidence of intrathoracic malignancy. 2. Multiple compression fractures of the thoracic spine, likely chronic. IMPRESSION: 1. No evidence of abdominal or pelvic malignancy. 2. Postsurgical changes lower lumbar spine with mild compression fractures L1 and L4 vertebral bodies, likely longstanding. Lumbar Spine CT 11/26/22 15:15 IMPRESSION: 1. Postoperative changes from lower lumbar spinal fusion. No compelling evidence of hardware failure. 2. Stable chronic compression fractures L1 and L4 vertebral bodies. 3. Limited assessment of the lower lumbar spinal canal at the site of fusion due to extensive metallic artifact. Findings could be better assessed on MRI exam or CT myelography if clinically warranted. Laboratory Results WBC 4.8 10^3/uL (4.0-10.0) 11/27/22 05:11 RBC 3.49 10^6/uL (4.1-5.3) L 11/27/22 05:11 Hgb 10.7 g/dL (11.7-16.6) L 11/27/22 05:11 Hct 33.2 % (42.0-52.0) L 11/27/22 05:11 MCV 95.1 fl (80-94) H 11/27/22 05:11 MCH 30.7 pg (28.0-34.0) 11/27/22 05:11 MCHC 32.2 g/dL (30.0-36.0) 11/27/22 05:11 RDW 13.6 % (12.1-15.1) 11/27/22 05:11 Plt Count 258 10^3/cmm (130-400) 11/27/22 05:11 MPV 9.2 fL (7.4-10.4) 11/27/22 05:11 Neut % (Auto) 41.1 % 11/27/22 05:11 Lymph % (Auto) 46.3 % 11/27/22 05:11 Person % (Auto) 8.5 % 11/27/22 05:11 Eos % (Auto) 3.1 % 11/27/22 05:11 Baso % (Auto) 0.8 % 11/27/22 05:11 Neut # (Auto) 1.98 10^3/uL (1.8-7.7) 11/27/22 05:11 Lymph # (Auto) 2.2 10^3/uL (0.8-4.8) 11/27/22 05:11 Person # (Auto) 0.4 10^3/uL (0.2-0.9) 11/27/22 05:11 Eos # (Auto) 0.2 10^3/uL (0.0-0.8) 11/27/22 05:11 Baso # (Auto) 0.0 10^3/uL (0.0-0.1) 11/27/22 05:11 Nucleated RBC % (auto) 0 % 11/27/22 05:11 Nucleated RBCs # 0.0 /100WBC 11/27/22 05:11 Specimen Type Arterial 11/26/22 12:07 Sample Site Radial, right 11/26/22 12:07 ABG pH 7.40 (7.35-7.45) 11/26/22 12:07 ABG pCO2 42.8 mmHg (35-45) 11/26/22 12:07 ABG pO2 85.4 mmHg (80.0-100.0) 11/26/22 12:07 ABG HCO3 26.5 mmol/L (22-26) H 11/26/22 12:07 ABG O2 Saturation 98.5 11/26/22 12:07 ABG Base Excess 1.5 mmol/L (-2.0-2.0) 11/26/22 12:07 Kirt Test Pos 11/26/22 12:07 A-a O2 Gradient 1.5 mmHg (5-10) L 11/26/22 12:07 Hematocrit 33.4 % (42-52) L 11/26/22 12:07 Hgb O2 Saturation 91.5 % (95-100) L 11/26/22 12:07 Carboxyhemoglobin 6.3 %THgb (0.4-20.1) 11/26/22 12:07 Methemoglobin 0.7 % (0.4-1.5) 11/26/22 12:07 Total Hemoglobin 10.9 g/dL (14-18) L 11/26/22 12:07 Sodium 137.0 mmol/L (131-143) 11/26/22 12:07 Potassium 4.2 mmol/L (3.5-5.0) 11/26/22 12:07 Glucose 114.0 mg/dL (70-115) 11/26/22 12:07 Ionized Calcium 1.2 mmol/L (1.1-1.4) 11/26/22 12:07 O2 Delivery Device Room air 11/26/22 12:07 FiO2 21.0 % 11/26/22 12:07 Enterprise Application [employer] ID [employer] 11/26/22 12:07 Sodium 140 mmol/L (136-145) 11/27/22 05:11 Potassium 4.0 mmol/L (3.5-5.1) 11/27/22 05:11 Chloride 106 mmol/L (98-107) 11/27/22 05:11 Carbon Dioxide 27 mmol/L (22-29) 11/27/22 05:11 Anion Gap 11.0 (5-19) 11/27/22 05:11 BUN 14 mg/dL (8-23) 11/27/22 05:11 Creatinine 0.5 mg/dL (0.7-1.2) L 11/27/22 05:11 GFR Calculation 166.9 mL/min (90-130) H 11/27/22 05:11 Glucose 92 mg/dL (65-115) 11/27/22 05:11 Calculated Osmolality 290 mOsm/kg (285-295) 11/27/22 05:11 Lactic Acid 0.9 mmol/L (0.5-2.2) 11/26/22 15:46 Calcium 8.4 mg/dL (8.5-10.5) L 11/27/22 05:11 Total Bilirubin 0.2 mg/dL (0.15-1.2) 11/26/22 12:34 AST 10 U/L (0-40) 11/26/22 12:34 ALT 6 U/L (0-41) 11/26/22 12:34 Alkaline Phosphatase 57 U/L (40-130) 11/26/22 12:34 Ammonia 29 umol/L (16-60) 11/26/22 12:22 Troponin T Baseline 13 ng/L (0-15) 11/26/22 15:46 Troponin T 120 Minute 12.47 ng/L (0-15) 11/26/22 17:49 Delta Troponin T -0.53 ABS# (0-10) L 11/26/22 17:49 Troponin T Hi Sens 6Hr 12.84 ng/L (0-15) 11/26/22 22:03 Troponin T Hi Sens 6Hr Delta -0.16 ng/L (0-12) L 11/26/22 22:03 Total Protein 6.1 g/dL (6.6-8.7) L 11/26/22 12:34 Albumin 4.0 g/dL (3.5-5.2) 11/26/22 12:34 Globulin 2.1 g/dL (1.3-4.6) 11/26/22 12:34 Lipase 12 U/L (13-60) L 11/26/22 15:46 Vitamin B12 404 pg/mL (232-1245) 11/26/22 15:46 Folate 5.5 ng/mL (4.5-32.2) 11/26/22 15:46 Procalcitonin 0.03 ng/mL (0-0.5) 11/26/22 15:46 TSH 1.11 uIU/mL (0.27-4.20) 11/26/22 12:34 Urine Color Dark yellow (Yellow) 11/26/22 11:45 Urine Appearance Clear (CLEAR) 11/26/22 11:45 Urine pH 5 (5-7) 11/26/22 11:45 Ur Specific [place] 1.020 (1.005-1.030) 11/26/22 11:45 Urine Protein Neg (Negative) 11/26/22 11:45 Urine Glucose (UA) Norm (Normal) 11/26/22 11:45 Urine Ketones Negative (Negative) 11/26/22 11:45 Urine Blood Neg (Negative) 11/26/22 11:45 Urine Nitrate Negative (Negative) 11/26/22 11:45 Urine Bilirubin 1+ (Negative) H 11/26/22 11:45 Urine Urobilinogen 1 mg/dL (Negative) H 11/26/22 11:45 Ur Leukocyte Esterase Negative (Negative) 11/26/22 11:45 Salicylates 0.6 mg/dL (3-10) L 11/26/22 12:34 Urine Opiates Screen Positive ng/mL (Negative) H 11/26/22 11:45 Acetaminophen < 5.0 ug/mL (10-30) L 11/26/22 12:34 Ur Barbiturates Screen Negative ng/mL (Negative) 11/26/22 11:45 Ur Phencyclidine Scrn Negative ng/mL (Negative) 11/26/22 11:45 Ur Amphetamines Screen Negative ng/mL (Negative) 11/26/22 11:45 U Benzodiazepines Scrn Negative ng/mL (Negative) 11/26/22 11:45 Urine Cocaine Screen Negative ng/mL (Negative) 11/26/22 11:45 U Marijuana (THC) Screen Positive ng/mL (Negative) H 11/26/22 11:45 Ethyl Alcohol < 10 mg/dL (0-10) 11/26/22 12:34 Vitals Last Vital Signs Temp 98.5 F 11/27/22 12:39 Pulse 71 11/27/22 13:54 Resp 18 08/22/23 07:46 BP 123/65 11/27/22 12:39 Pulse Ox 97 11/27/22 13:54 O2 Del Method Room Air 11/27/22 13:54 Discharge Plan Discharge Patient Disposition: Home Condition: Stable Prescriptions: New aspirin 81 mg capsule 81 mg PO DAILY 30 Days Qty: 30 0RF atorvastatin 40 mg tablet 40 mg PO DAILY 30 Days Qty: 30 0RF Continued (DME) Intraoperative Neurophysiological Testing See Rx Instructions .Route .MEDSUPPLY Qty: 1 0RF Rx Instructions: As directed tizanidine 2 mg tablet 6 mg PO Q8H PRN (Reason: Muscle Spasm) amitriptyline 75 mg tablet 75 mg PO BEDTIME hydrocodone-acetaminophen 10-325 mg tablet 2 tab PO Q6H PRN (Reason: Pain) trazodone 100 mg tablet 200 mg PO BEDTIME Stool Softener 100 mg Capsule 100 mg PO DAILY PRN (Reason: Constipation) Prilosec OTC 20 mg Tablet,Delayed Release (Dr/Ec) 20 mg PO DAILY Discharge Orders: Discharge Order (Routine); Ordered 11/27/22 Ordered By: Ramez Whelan Referrals: Sanjuana Tse MD [Physician] - 11/29/22 9:30 am Reji Sheppard MD [Primary Care Provider] - 11/30/22 8:55 am Discharge Diet: Cardiac Discharge Activity: Resume usual activity Patient Instructions: Aspirin (By mouth), Atorvastatin (By mouth), How to Stop Smoking (DC), Cigarette Smoking and Your Health (GEN), Altered Mental Status (ED) Activity Restrictions/Additional Instructions: - If you have any strokelike symptoms please call [phone] -Please stop smoking -Patient symptomatology could be exlained by transient global amnesia, needs to quit smoking, take aspirin and statin, needs to follow up with neurology, if any recurrent symptoms go to er Discharge Attestations Time Spent in Discharge Care*: greater than 30 min Time Spent in Smoking Cessation: 3 to 10 minutes Quality Metrics Clinical Quality Measures [ No reported AMI, CVA or VTE this stay] Coding Level of Care Code 91084 Total time (in minutes) for Discharge: 45 Diagnoses Altered mental status R41.82
== END 2022-11-27 16:30 | disposition home or self-care (01) ==
LOC: ER 15:35 → MEDSURG 17:13
PROVIDERS: Admitting Provider Family Medicine; Emergency Provider Emergency Medicine; PCP Family Medicine; Visit Provider Family Medicine
DX: R41.82 Altered mental status, unspecified (principal); Z98.1 Arthrodesis status; F17.210 Nicotine dependence, cigarettes, uncomplicated; I47.1 Supraventricular tachycardia; M84.48XA Pathological fracture, other site, initial encounter for fracture
CPT/HCPCS: 36415; 36600; 70450; 70551; 71045; 71250; 72131; 72170; 74176; 80048; 80051; 80053; 80306; 80307; 81003; 82140; 82330; 82607; 82746; 82805; 83605; 83690; 84145; 84443; 84484; 85025; 87040; 93005; 93880; 94664; 96361; 96372; 96374; 97161; 97165; 97530; 99285; A9281; G0378; J1650; J1885; J7030

== ENCOUNTER → 2022-11-29 09:20 | Outpatient (BNVA) | payer MEDICARE, OTHER, SELFPAY | PROVIDERS: PCP Family Medicine; Visit Provider Psychiatry & Neurology Neurology | DX: R55 Syncope and collapse (principal); Z98.890 Other specified postprocedural states; F10.11 Alcohol abuse, in remission; F12.90 Cannabis use, unspecified, uncomplicated; D64.9 Anemia, unspecified | CPT/HCPCS: 83735; 99203 ==

== ENCOUNTER 2022-11-29 11:47 | Outpatient (CLI) | payer MEDICARE, SELFPAY ==
[2022-11-29 13:13] LABS: Magnesium 2.1 mg/dL (1.7-2.3)
== END 2022-11-29 11:48 | disposition home or self-care (01) ==
PROVIDERS: PCP Family Medicine; Visit Provider Psychiatry & Neurology Neurology
DX: R55 Syncope and collapse (principal)
CPT/HCPCS: 83735

== ENCOUNTER → 2022-12-04 10:30 | Outpatient (BNVA) | payer MEDICARE, OTHER, SELFPAY | PROVIDERS: PCP Family Medicine; Referring Provider Psychiatry & Neurology Neurology; Visit Provider Psychiatry & Neurology Neurology | DX: Z47.89 Encounter for other orthopedic aftercare (principal); Z98.1 Arthrodesis status | CPT/HCPCS: 72100; 95816; 99024 ==

== ENCOUNTER → 2023-01-15 10:17 | Outpatient (BNVA) | payer MEDICARE, OTHER, SELFPAY | PROVIDERS: PCP Family Medicine; Visit Provider Orthopaedic Surgery | DX: Z47.89 Encounter for other orthopedic aftercare (principal); Z98.1 Arthrodesis status; M47.816 Spondylosis without myelopathy or radiculopathy, lumbar region; M47.814 Spondylosis without myelopathy or radiculopathy, thoracic region; M81.0 Age-related osteoporosis without current pathological fracture | CPT/HCPCS: 72100; 99024 ==

== ENCOUNTER → 2023-02-04 14:20 | Outpatient (BNVA) | payer MEDICARE, OTHER, SELFPAY | PROVIDERS: PCP Family Medicine; Visit Provider Psychiatry & Neurology Neurology | DX: G45.4 Transient global amnesia (principal); R94.31 Abnormal electrocardiogram [ECG] [EKG]; E51.2 Wernicke's encephalopathy; F10.21 Alcohol dependence, in remission; F12.99 Cannabis use, unspecified with unspecified cannabis-induced disorder; F17.210 Nicotine dependence, cigarettes, uncomplicated | CPT/HCPCS: 99212 ==

== ENCOUNTER → 2023-02-25 09:48 | Outpatient (BNVA) | payer MEDICARE, OTHER, SELFPAY | PROVIDERS: PCP Family Medicine; Referring Provider Psychiatry & Neurology Neurology; Visit Provider Internal Medicine Cardiovascular Disease | DX: R94.31 Abnormal electrocardiogram [ECG] [EKG] (principal); E51.2 Wernicke's encephalopathy; M51.37 Other intervertebral disc degeneration, lumbosacral region; M48.062 Spinal stenosis, lumbar region with neurogenic claudication; F17.200 Nicotine dependence, unspecified, uncomplicated | CPT/HCPCS: 99204 ==

== ENCOUNTER 2023-03-08 12:03 | Outpatient (CLI) | payer MEDICARE, OTHER, SELFPAY ==
--- NOTE | 2023-03-08 12:15 | USCV_ITS ---
Tk Copeland Age: 68 Gender: M : 1955 Exam Date: 03/08/2023 12:36 Ordering Phys: Marylou Fletcher MD ([email or web address]) Technologist: CT Exam Location: [facility] [place] Indication: syncope BP: 110 / 60 HR: 62 Rhythm: Sinus Technical Quality: Adequate MEASUREMENTS (Male / Female) Normal Values 2D ECHO LV Chamber Size 5.3 cm RV Chamber Size 3.0 cm LVOT Diameter 2.1 cm LV Ejection Fraction MOD 2C 52.5 % LV Ejection Fraction 2C AL 50.7 % LA Diameter 3.9 cm LA Width 4.5 cm LA Height 4.3 cm RA Width 4.3 cm RA Height 4.5 cm Aorta at Sinotubular Diameter 2.6 cm IVC Diameter 1.7 cm M-MODE Aortic Annulus Diameter 3.3 cm LA Ao Ratio MM 1.5 MV E Point Septal Separation 0.9 cm DOPPLER AV Peak Velocity 141.0 cm/s LVOT Peak Velocity 106.0 cm/s AV Area Cont Eq vti 2.5 cm squared AV Area Cont Eq pk 2.6 cm squared MV E' Velocity 12.0 cm/s TR Peak Velocity 198.7 cm/s TR Peak Gradient 15.8 mmHg TV Peak E Velocity 100.0 cm/s Right Atrial Pressure 3.0 mmHg Pulmonary Artery Systolic Pressu 18.8 mmHg PV Peak Velocity 82.0 cm/s FINDINGS Left Ventricle Normal left ventricular size, systolic function and wall thickness, with no regional wall motion abnormalities. Left ventricular ejection fraction is estimated at 65 %. Normal diastolic function. Right Ventricle Normal right ventricular size and systolic function. Right ventricular systolic pressure 18.8 mmHg. Right Atrium Normal right atrial size. Slightly aneurysmal interatrial septum. Left Atrium Normal left atrial size. Mitral Valve Structurally normal mitral valve. No mitral valve stenosis. Trace mitral valve regurgitation. Aortic Valve Structurally normal trileaflet aortic valve. No aortic valve stenosis. No aortic valve regurgitation. Tricuspid Valve Structurally normal tricuspid valve. No tricuspid valve stenosis. Trace to mild tricuspid valve regurgitation. Pulmonic Valve Pulmonic valve not well visualized. Pericardium No pericardial effusion. Aorta Normal size aortic root and proximal ascending aorta. IVC Normal IVC dimension with >50% respiratory change of the inferior vena cava. CONCLUSIONS 1. Normal left ventricular size, systolic function and wall thickness, with no regional wall motion abnormalities. Left ventricular ejection fraction is estimated at 65 %. Normal diastolic function. 2. Trace to mild tricuspid valve regurgitation. 3. Normal pulmonary artery pressure. 4. No prior similar studies to compare. Marylou Fletcher MD (Electronically Signed) Final Date: 13 March 2023 12:09 S
== END 2023-03-08 12:04 | disposition home or self-care (01) ==
LOC: RAD 12:03
PROVIDERS: PCP Family Medicine; Visit Provider Internal Medicine Cardiovascular Disease
DX: R94.31 Abnormal electrocardiogram [ECG] [EKG] (principal); I07.1 Rheumatic tricuspid insufficiency
CPT/HCPCS: 93306

== ENCOUNTER → 2023-04-16 09:44 | Outpatient (BNVA) | payer MEDICARE, OTHER, SELFPAY | PROVIDERS: PCP Family Medicine; Visit Provider Orthopaedic Surgery | DX: Z47.89 Encounter for other orthopedic aftercare (principal); Z98.1 Arthrodesis status | CPT/HCPCS: 72100; 99213 ==

== ENCOUNTER → 2023-10-25 11:22 | Outpatient (BNVA) | payer MEDICARE, SELFPAY | PROVIDERS: PCP Family Medicine; Visit Provider Internal Medicine Cardiovascular Disease | DX: E51.2 Wernicke's encephalopathy (principal); G45.4 Transient global amnesia; R94.31 Abnormal electrocardiogram [ECG] [EKG]; Z72.0 Tobacco use | CPT/HCPCS: 99213 ==

== ENCOUNTER 2023-11-04 11:04 | Outpatient (CLI) | payer MEDICARE, SELFPAY ==
--- NOTE | 2023-11-04 11:07 | CT_ITS ---
WS: [id number] LDCT LUNG CANCER SCREENING HISTORY: HX OF TOBACCO USE TECHNIQUE: Axial imaging performed from the apices to 1 cm below the costophrenic angles. Coronal and sagittal reformats are submitted with axial MIP series. All CT scans at [facility] use at least one of these dose optimization techniques: automated exposure control; mA and/or kV adjustment per patient size (includes targeted exams where dose is matched to clinical indication); or iterativ e reconstruction. DLP: 48.81 mGy.cm DIvol: Mean CTDIvol: 0.70 (mGy) COMPARISON: 11/26/2022 Diagnostic quality: Satisfactory Lungs: Hyperexpanded lungs. There are scattered pulmonary nodules. The largest nodule is subpleural s uperior segment LEFT lower lobe measuring 6 mm. This nodule was present on the prior exam. There is a n additional 5 mm nodule posterior RIGHT upper lobe. Nodules are unchanged. Better seen today due to smaller slice thickness. No pneumonia. Frothy secretions in the trachea. Heart: Normal size heart with no pericardial effusion.. Other findings: No mediastinal or hilar adenopathy. Mild atherosclerosis aorta. Small hiatal hernia. Granuloma in the spleen. Increase in thoracic kyphosis. Numerous wedge-shaped fractures throughout th e thoracic and upper lumbar spine. CT/CT lung screening [id number] IMPRESSION: LUNG-RADS: 2-Benign Appearance or Behavior FOLLOW UP: 12 Month: Continue annual screening with LDCT OTHER FINDINGS (S MODIFIER): None.
== END 2023-11-04 11:05 | disposition home or self-care (01) ==
LOC: RAD 11:04
PROVIDERS: PCP Family Medicine; Visit Provider Family Medicine
DX: Z87.891 Personal history of nicotine dependence (principal); R91.8 Other nonspecific abnormal finding of lung field; I70.0 Atherosclerosis of aorta; K44.9 Diaphragmatic hernia without obstruction or gangrene; M40.294 Other kyphosis, thoracic region; S22.000A Wedge compression fracture of unspecified thoracic vertebra, initial encounter for closed fracture; X58.XXXA Exposure to other specified factors, initial encounter
CPT/HCPCS: 71271

== ENCOUNTER 2023-11-15 14:32 | Outpatient (CLI) | payer MEDICARE, SELFPAY ==
--- NOTE | 2023-11-15 14:37 | CTR_ITS ---
PROCEDURE INFORMATION: Exam: CT Abdomen And Pelvis Without And With Contrast Exam date and time: 11/15/2023 3:25 PM Age: 68 years old Clinical indication: Patient HX: Abnormal weight loss, 45lb over 1 year TECHNIQUE: Imaging protocol: Computed tomography of the abdomen and pelvis without and with contrast. Radiation optimization: All CT scans at this facility use at least one of these dose optimization techniques: automated exposure control; mA and/or kV adjustment per patient size (includes targeted exams where dose is matched to clinical indication); or iterative reconstruction. Contrast material: OMNI 350; Contrast volume: 90 ml; Contrast route: INTRAVENOUS (IV); COMPARISON: [place] [id number] 11/26/2022 4:12 PM RADIATION DOSE METRICS: Total DLP (mGy-cm): 609.06 FINDINGS: Lungs: There is a benign calcified granuloma in the left lower lobe. Liver: The liver is normal. Gallbladder and biliary ducts: The gallbladder is normal. There is no biliary dilation. Pancreas: The pancreas is unremarkable. Spleen: Splenic size is normal. There are scattered calcifications consistent with healed granulomas. Adrenal glands: The adrenal glands are unremarkable. Kidneys and ureters: There are scattered tiny bilateral simple renal cysts. Renal parenchymal enhancement pattern is otherwise normal. There is no hydronephrosis or stones. Stomach and bowel: The stomach is unremarkable. The small bowel is nondilated. The colon is unremarkable. Appendix: The appendix is normal. Intraperitoneal space: There is no free air or significant intraperitoneal free fluid. Vasculature: There is mild aortic atherosclerotic disease. The portal, splenic and superior mesenteric veins are patent. Lymph nodes: There is no lymphadenopathy in the retroperitoneum, mesentery, pelvis or inguinal regions. Urinary bladder: The urinary bladder is decompressed, preventing meaningful evaluation of wall thickness. Reproductive: The prostate and seminal vesicles are unremarkable. Bones/joints: Intact posterolateral/interbody fusion at L4 through S1. Intact bilateral SI joint screws. Mild chronic L1 superior endplate compression fracture is stable since 11/26/2022. pelvis and proximal femora are intact. Hips are unremarkable. Soft tissues: The abdominal wall is intact. CT/CT abdomen pelvis wo/w [id number] IMPRESSION: 1. No acute findings. 2. No sign of malignancy in the abdomen or pelvis. 3. Incidental findings above. COMMENTS: Consistent with the [employer]'s Incidental Findings Committee white paper (J Am Shayna Radiol 2018): Any incidental renal lesion less than 1 cm or classified as too small to characterize, or any incidental cystic renal lesion characterized as simple-appearing, is likely benign. No follow-up imaging is recommended for these lesions per consensus recommendations based on imaging criteria.
[2023-11-15] MEDS: iohexol 350 mg/mL 500 mL Btl (per mL) IV (15:34)
== END 2023-11-15 14:33 | disposition home or self-care (01) ==
PROVIDERS: PCP Family Medicine; Visit Provider Electrodiagnostic Medicine
DX: R63.4 Abnormal weight loss (principal); J84.10 Pulmonary fibrosis, unspecified; I70.0 Atherosclerosis of aorta; S32.018D Other fracture of first lumbar vertebra, subsequent encounter for fracture with routine healing; X58.XXXD Exposure to other specified factors, subsequent encounter; Z96.7 Presence of other bone and tendon implants
CPT/HCPCS: 74178; Q9967

== ENCOUNTER → 2024-06-01 14:49 | Outpatient (BNVA) | payer MEDICARE, SELFPAY | PROVIDERS: PCP Family Medicine; Visit Provider Psychiatry & Neurology Neurology | DX: G45.4 Transient global amnesia (principal); E51.2 Wernicke's encephalopathy | CPT/HCPCS: 99212 ==